=== PATIENT | female | born 1945 ===

== ENCOUNTER 2016-06-25 14:15 | Inpatient (IN) | payer MEDICARE, OTHER ==
[2016-06-25] MEDS ORDERED: Sodium Chloride 3% for Inhalation 4 ML VIAL.NEB IH PRN ×2 (14:58→17:39)
[2016-06-25] MEDS ORDERED: Albuterol-Ipratrop 3 mg / 0.5 (3 ml) UD INH STA (15:00)
--- NOTE | 2016-06-25 15:11 | ED PDOC ---
HPI: CCC, URI, Sore Throat Time Seen by Provider: 06/25/16 14:36 Chief Complaint (Nursing): Chest Pain Chief Complaint (Provider): Chest Pain History Per: Patient History/Exam Limitations: no limitations Onset/Duration Of Symptoms: Days Current Symptoms Are (Timing): Still Present Location Of Pain: Throat, Diffuse Myalgias Sick Contacts (Context): None Associated Symptoms: Fever, Sore Throat, Cough, Sputum Ear Symptoms: Bilateral: None Severity: Mild Additional Complaint(s): Patient is a 70 year old female who presents to ED for cough and congestion for 2 months and chest pain that developed 3 days ago. Patient states chest pain only present with cough, associated with intermittent fevers, whole body pain, sore throat and dizziness. Denies syncope, abdominal pain, nausea, vomiting, or back pain. Patient does note mild diarrhea. Past Medical History Reviewed: Historical Data, Nursing Documentation, Vital Signs Vital Signs: Last Vital Signs Temp 99.6 F 06/25/16 17:56 Pulse 96 H 06/25/16 17:56 Resp 18 06/25/16 17:56 BP 114/48 L 06/25/16 17:56 Pulse Ox 98 06/25/16 17:05 - Medical History PMH: CAD, Diabetes, Gastritis, HTN - Surgical History Surgical History: CABG - Family History Family History: States: No Known Family Hx - Living Arrangements Living Arrangements: With Family - Home Medications Home Medications: Ambulatory Orders Medication Instructions Recorded Albuterol 0.042% [Albuterol 0.042% 3 ml IH Q6H PRN 06/25/16 Inhal Nevin (1.25mg/3ml) UD] Albuterol Sulfate [Proair Hfa] 2 puff IH Q4H PRN 06/25/16 Enalapril Maleate [Vasotec] 20 mg PO DAILY 06/25/16 Ferrous Sulfate [Feosol] 325 mg PO TID 06/25/16 MetFORMIN [glucoPHAGE] 1,000 mg PO BID 06/25/16 Metoprolol Tartrate [Lopressor] 50 mg PO DAILY 06/25/16 Omeprazole/Sodium Bicarbonate [Ra 1 cap PO DAILY 06/25/16 Omeprazole-Bicarb 20-1,100] SITagliptin [Januvia] 50 mg PO DAILY 06/25/16 Warfarin [Coumadin] 2.5 mg PO QPM 06/25/16 amLODIPine [Norvasc] 10 mg PO DAILY 06/25/16 glyBURIDE [Micronase] 5 mg PO BID 06/25/16 - Allergies Allergies/Adverse Reactions: Allergies Allergy/AdvReac Type Severity Reaction Status Date / Time Penicillins AdvReac Intermediate RASH Verified 06/25/16 17:21 Review of Systems ROS Statement: Except As Marked, All Systems Reviewed And Found Negative Constitutional: Positive for: Fever, Chills ENT: Positive for: Throat Pain. Negative for: Ear Pain, Nose Congestion Cardiovascular: Positive for: Chest Pain. Negative for: Palpitations, Light Headedness Respiratory: Positive for: Cough, Sputum. Negative for: Shortness of Breath Gastrointestinal: Negative for: Nausea, Vomiting, Abdominal Pain Musculoskeletal: Negative for: Neck Pain Skin: Negative for: Rash Neurological: Negative for: Weakness Physical Exam - Reviewed Nursing Documentation Reviewed: Yes Vital Signs Reviewed: Yes - Physical Exam Appears: Positive for: Non-toxic, No Acute Distress Skin: Positive for: Normal Color, Warm. Negative for: Rash Eye Exam: Positive for: Normal appearance, EOMI, PERRL ENT: Positive for: Normal ENT Inspection. Negative for: Pharyngeal Erythema, Tonsillar Exudate, Tonsillar Swelling Neck: Positive for: Normal, Painless ROM, Supple Cardiovascular/Chest: Positive for: Regular Rate, Rhythm, Chest Non Tender. Negative for: Murmur Respiratory: Positive for: Normal Breath Sounds. Negative for: Respiratory Distress Back: Positive for: Normal Inspection Extremity: Positive for: Normal ROM. Negative for: Pedal Edema, Calf Tenderness Neurologic/Psych: Positive for: Alert, Oriented - Laboratory Results Result Diagrams: 06/25/16 15:55 06/25/16 15:55 - ECG O2 Sat by Pulse Oximetry: 98 (RA) Pulse Ox Interpretation: Normal - Critical Care Total Time (In Min): 35 Medical Decision Making Medical Decision Making: Time: 1455 Initial impression: Pneumonia, sepsis, influenza, bronchitis Initial plan: -- VBG -- EKG -- BMP -- CMP -- Troponin -- Urine dip -- CBC -- CXR -- Duoneb, NSF, Tylenol -- Blood culture -- Sputum culture -- Flu swab Time: 1645 Code sepsis called, patient administered NSF bolus and antibiotics via sepsis protocol. Family resident contacted for admission to ICU, paged dance teacher pending call back Time: 1700 Case discussed with intensivisit, agrees with plan and treatment CXR: (+) right middle and lower lobe pneumonia [address] Lau for ID consult. Scribe Attestation: Documented by Kimberly Read acting as a scribe for Karri Suero MD. Scribe Attestation: All medical record entries made by the Scribe were at my direction and personally dictated by me. I have reviewed the chart and agree that the record accurately reflects my personal performance of the history, physical exam, medical decision making, and the department course for this patient. I have also personally directed, reviewed, and agree with the discharge instructions and disposition. Disposition - Clinical Impression Clinical Impression: Pneumonia, Severe sepsis, Hyperglycemia due to type 2 diabetes mellitus, Septic shock - Patient ED Disposition Is Patient to be Admitted: Yes Discussed With : Joy Teague Doctor Will See Patient In The: ED Counseled Patient/Family Regarding: Studies Performed, Diagnosis - Disposition Disposition Time: 16:00 Condition: FAIR - Pt Status Changed To: Hospital Disposition Of: Inpatient - Admit Certification Admit to Inpatient:: After my assessment, the patient will require hospitalization for at least two midnights. This is because of the severity of symptoms shown, intensity of services needed, and/or the medical risk in this patient being treated as an outpatient. - POA Present On Arrival: Poor Glycemic Control Core Measure Indicators: Code Sepsis
[2016-06-25] MEDS ORDERED: Albuterol-Ipratrop 3 mg / 0.5 (3 ml) UD ONE (15:19)
[2016-06-25 16:11] LABS: VENOUS BLOOD GAS BASE EXCESS -1.7 mmol/L (0.0-2.0); VENOUS BLOOD GAS PCO2 34 mmHg (40-60); VENOUS BLOOD PH 7.42 (7.32-7.43)
[2016-06-25] MEDS ORDERED: Piperacillin/Tazobact 4.5 GM in Sodium Chloride 0.9% 100 ML IVPB STA (16:18)
[2016-06-25] MEDS ORDERED: Ciprofloxacin 400mg/200ml D5W 200 ML IVPB STA (16:19)
[2016-06-25] MEDS ORDERED: Vancomycin 1 g Inj ONE (16:19)
[2016-06-25 16:23] LABS: BASO # 0.2 K/uL (0.0-0.2); BASO % 0.7 % (0.0-2.0); HEMATOCRIT 39.3 % (34.0-47.0); LYMPH % 4.4 % (20.0-40.0); MEAN CELL VOLUME 87.8 fl (81.0-99.0); MEAN CORPUSCULAR HGB CONC 33.1 g/dL (33.0-37.0); MEAN PLATELET VOLUME 9.8 fl (7.2-11.7); MONO # 1.3 K/uL (0.0-0.8); MONO % 5.6 % (0.0-10.0); NEUT # 21.2 K/uL (1.8-7.0); NEUT % 89.3 % (50.0-75.0); PLATELET COUNT 214 K/uL (130-400); RED CELL DISTRIBUTION WIDTH 13.9 % (11.5-14.5); WHITE BLOOD COUNT 23.7 K/uL (4.8-10.8)
[2016-06-25 16:38] LABS: ALB/GLOB RATIO 1.1 (1.0-2.1); ALKALINE PHOSPHATASE 87 U/L (38-126); ALT/SGPT 22 U/L (9-52); AST/SGOT 29 U/L (14-36); BILIRUBIN,TOTAL 0.8 mg/dl (0.2-1.3); BLOOD UREA NITROGEN 17 mg/dl (7-17); CALCIUM 9.6 mg/dL (8.4-10.2); CARBON DIOXIDE 17 mmol/L (22-30); CHLORIDE 98 mmol/L (98-107); GFR AFRICAN-AMERICAN > 60; GLUCOSE,RANDOM 322 mg/dL (65-105); POTASSIUM 4.9 MMOL/L (3.6-5.0); SODIUM 133 mmol/l (132-148); TOTAL PROTEIN 7.5 G/DL (6.3-8.2)
[2016-06-25 16:47] LABS: PARTIAL THROMBOPLASTIN TIME 48.3 SECONDS (23.3-32.5)
[2016-06-25] MEDS ORDERED: Insulin Regular 100 units/ml IV STA (17:11)
--- NOTE | 2016-06-25 17:21 | CP.PCM.HP ---
History of Present Illness - History of Present Illness History of Present Illness: 70 y/o female with a PMHx remarkable for HTN, NIDDM2, CAD (s/o CABG 6 years ago) , and Asthma presents complaining of 1 months history of cough and congestion. Pt reports having a dry cough and rhinorrea for about one month, she went to [place] to visit her son two weeks ago and the symptoms seemed to resolve. Upon on her return to [place], the cough and congestion got worse. She went to see her cardiogist who prescribed her Clarithromycin 2 weeks ago for a 7 day course. 3 days ago the cough started to become productive and was associated with chest pain, fatigues, and chills. Pt has no other complaints. Denies headaches, changes in vision, N/V/D/C, urinary symptoms, numbness/tingling. ROS: 12 points reviewed and found to be negative PMD: Keshav Almanzar (last visit 3 years ago) Clinical Academic Allergist: Arsenio PMHx: HTN, NIDDM2, CAD (s/p CABG 6 years ago), Asthma Meds: Januvia 50mg QD, Metformin 1000 BID, Glyburide 5mg QD, Metoprolol 50mg QD , Amlodipine 10mg QD, Enalapril 20mg QD, Omeprazole 20mg QD. Warfarin 3mg QD. ALL: Penicillin (rash) PsurgHx: Hysterectomy 20 years ago, Cholecystectomy 20 years ago SHx: negative for tobacco, ETOH, and illicit drug use ED Course: Vitals on presentation: 103.4 F, BP: 153/67, HR: 106, RR: 16, O2: 98% on RA Labs Ordered: CBC: 23.7>13.0/39.3<214, Bands: 5 CMP: BUN 23 Lactate: 5.4 BNP: 1200 Troponin I: negative Influenza A&B: negative PT/PTT: 35.3/48.3 INR: 3.38 Urine Cx, Blood Cx, Sputum Cx Imaging Ordered: CXR: left infiltrate EKG: sinus tachycardia Code Sepsis Called Meds given: IV Zosyn IV Cipro IV Vanc Admitted to ICU Present on Admission - Present on Admission Any Indicators Present on Admission: No Review of Systems - Review of Systems All systems: reviewed and no additional remarkable complaints except Past Patient History - Infectious Disease Hx of Infectious Diseases: None - Tetanus Immunizations Tetanus Immunization: Unknown - Past Medical History & Family History Past Medical History?: Yes - Past Social History Smoking Status: Never Smoked Alcohol: None Drugs: Denies Home Situation {Lives}: With Family Domestic Violence: Negative - CARDIAC Hx Hypertension: Yes - GASTROINTESTINAL Hx Gastritis: Yes - SURGICAL HISTORY Hx Coronary Artery Bypass Graft: Yes Meds Allergies/Adverse Reactions: Allergies Allergy/AdvReac Type Severity Reaction Status Date / Time Penicillins AdvReac Intermediate RASH Verified 06/25/16 17:21 Physical Exam - Constitutional Appears: Non-toxic, No Acute Distress - Head Exam Head Exam: ATRAUMATIC, NORMOCEPHALIC - Eye Exam Eye Exam: EOMI. absent: Conjunctival injection, Scleral icterus Pupil Exam: PERRL - ENT Exam ENT Exam: Mucous Membranes Moist - Neck Exam Neck exam: Positive for: Full Rom, Normal Inspection. Negative for: Lymphadenopathy - Respiratory Exam Respiratory Exam: Rales, Wheezes. absent: Respiratory Distress Additional comments: bibasilar rales expiratory wheezing posteriorly and bilaterally mild dullness to percussion on posterior left lower lung field - Cardiovascular Exam Cardiovascular Exam: Tachycardia, REGULAR RHYTHM, RRR, +S1, +S2. absent: Gallop , JVD, Rubs, Systolic Murmur - GI/Abdominal Exam GI & Abdominal Exam: Normal Bowel Sounds, Soft. absent: Distended, Firm, Guarding, Rebound, Tenderness - Extremities Exam Extremities exam: Positive for: normal inspection, pedal pulses present. Negative for: calf tenderness, pedal edema, tenderness - Back Exam Back exam: NORMAL INSPECTION - Neurological Exam Neurological exam: Alert, CN II-XII Intact, Normal Gait, Oriented x3 - Psychiatric Exam Psychiatric exam: Normal Affect, Normal Mood - Skin Skin Exam: Dry, Intact, Normal Color, Warm Results - Vital Signs Recent Vital Signs: Last Vital Signs Temp 99.6 F 06/25/16 16:28 Pulse 96 H 06/25/16 16:28 Resp 18 06/25/16 16:28 BP 114/48 L 06/25/16 16:28 Pulse Ox 98 06/25/16 17:05 - Labs Result Diagrams: 06/25/16 15:55 06/25/16 15:55 Assessment & Plan - Assessment and Plan (Free Text) Assessment: 70 y/o female with a PMHx remarkable for HTN, NIDDM2, CAD (s/p CABG 6 years ago) , and Asthma admitted for Sepsis secondary to Pneumonia Plan: 1) Sepsis Secondary to Pneumonia: -admitted to ICU -Case discussed with ICU attending Dr. Zamora -Urine analysis and culture: pending -blood cultures: pending -sputum cultures: pending -IV Levofloxacin 750 ml QD -IV Ciprofloxcin 200 ml Q12 -IV Vancomycin 1gm Q12 -repeat Lactate in 4 hours: pending -ABG Shock Panel: pending -CMP next day: pending 2) Hypertension (controlled) c/w home medications 3) NIDDM2 -stopped Metormin and Glyburide -Januvia 50mg QD 4) Asthma: -Albuterol 2.5 inhaled Q PRN 5) DVT Prophylaxis -Warfarin 2.5 mg QD
[2016-06-25] MEDS ORDERED: Ciprofloxacin 400mg/200ml D5W 200 ML IVPB ONE (17:26)
[2016-06-25 17:32] LABS: NEUTROPHIL 84 % (42-75); TOTAL CELLS COUNTED 100
[2016-06-25] MEDS ORDERED: Albuterol 0.083% Inhal Sol (2.5 mg/3 mL) UD INH PRN (17:39)
[2016-06-25] MEDS ORDERED: Sodium Chloride 0.9% 1,000 ML IV SCH (17:45)
[2016-06-25] MEDS ORDERED: Glucagon Recombinant 1 mg Inj IM PRN (18:06)
[2016-06-25] MEDS ORDERED: Dextrose 50% SYRINGE Inj (50 ml) IV PRN (18:06)
--- NOTE | 2016-06-25 19:07 | CON ---
DATE: 06/25/2016 The patient in room ICU 421. REASON FOR CONSULTATION: A 70-year-old female with sepsis, suspected pneumonia for further evaluatio n and followup. HISTORY OF PRESENT ILLNESS: The patient is a 70-year-old female with history of diabetes me llitus type 2, hypertension, gastritis, coronary artery disease status post coronary artery bypass gr aft surgery and status post cerebrovascular accident without residual weakness, presented to [facility] Room complaining of fever associated with body ache, sore throat and dizziness. In the ER, the pat ient's vital signs showed a temperature 99.6, heart rate 96, respiratory rate 18, blood pressure 114/ 48, pulse oximetry 98%. Examination was significant for normal color, warm. Negative for rash. Pos itive for ENT for pharyngeal erythema. Clear lungs. Unremarkable examination of the heart. Neuro e xamination was nonfocal. The patient's lab data showed leukocytosis, blood sugar 322 with a high ani on gap, metabolic acidosis. Chest x-ray showed suspected infiltrate left lower lobe admitted to ICU. REVIEW OF SYSTEMS: As noted, fever, chills, body ache, sore throat, nonproductive cough. No abdomin al pain or diarrhea. Does dysuria. ALLERGIES: PENICILLIN. SOCIAL HISTORY: Nonsmoker, no ETOH use, and no recreational drug use. PHYSICAL EXAMINATION: GENERAL: Elderly female, oriented to name, place and time. VITAL SIGNS: Temperature 103.4, heart rate 96, blood pressure 114/48, oxygen saturation 96% on room air. HEAD, EYES, EARS, NOSE AND THROAT: Pupils reactive. Conjunctivae pink. Sclerae white. Throat obed ested. No enlargement of the tonsils. No lymphadenopathy. Trachea is central. NECK: Supple. CHEST: Bilateral breath sounds. Clear to auscultation. HEART: Rhythm regular. S1, S2 normal intensity. No S3, S4 or gallop. No audible murmur. ABDOMEN: Bowel sounds present, soft. Liver and spleen not palpable. Bladder not distended. EXTREMITIES: No clubbing, cyanosis, or edema. Peripheral pulses intact. No palpable cord. SKIN: Without rash. LABORATORY DATA: WBC 23.7, hemoglobin 13, hematocrit 39.3, platelet count 214, neutrophils 89.3, lym phocytes 4.4, monocytes 5.6. PT 35.2, INR 3.38, PTT 48.3. Lactate 5.4. SMA-7: Sodium 133, potassi um 4.9, chloride 98, CO2 of 17, blood urea nitrogen 17, creatinine 0.9, glucose 322, calcium 9.6, tot al bilirubin 0.8, AST 29, ALT 22, alkaline phosphatase 87, troponin negative, proBNP 1200, total prot ein 7.5, albumin 3.9. Serology influenza A and B negative. ASSESSMENT: 1. Sepsis, source respiratory versus urinary tract, status post hydration with 2.5 liters of fluid. Continue sodium chloride at 100 mL per hour. 2. Suspected pneumonia, failed outpatient treatment with azithromycin, PENICILLIN ALLERGY, currentl y vancomycin 1 gram IV q. 12, levofloxacin 750 mg IV daily. 3. Diabetes mellitus type 2 on 1800 calorie diabetic diet. Continue metformin. Continue Januvia 50 mg daily, Accu-Chek with regular insulin coverage. History of hypertension, controlled, status post cerebrovascular accident with residual weakness. Status post coronary artery bypass graft surgery, stable. PLAN: Septic workup. Repeat lactate level. Hold Coumadin until coagulopathy is corrected. Hold GI prophylaxis. The patient is not intubated. Continue albuterol solution 2.5 mg every 6 hours and ev shaunna 4 hours as needed and Pulmicort 0.5 mg via nebulizer q. 12. Cesar Zamora MD cc: 170 TT: 06/25/2016 19:06:24 Confirmation # [id number] Dictation # [id number] tobias
--- NOTE | 2016-06-25 20:03 | CP.PCM.PN ---
Subjective - Date & Time of Evaluation Date of Evaluation: 06/25/16 Time of Evaluation: 20:00 - Subjective Subjective: ID NOTE AWAIT CULTURES FULL CONSULT TO FOLLOW AGREE C PRESENT ANTIBIOTIC RX Objective - Vital Signs/Intake and Output Vital Signs (last 24 hours): Temp Pulse Resp BP Pulse Ox 98.7 F 97 H 21 140/66 92 L 06/25/16 18:29 06/25/16 18:49 06/25/16 18:49 06/25/16 18:17 06/25/16 18:29 Intake and Output: 06/25/16 06/26/16 18:59 06:59 Intake Total 400 Output Total 500 Balance -100 - Medications Medications: Current Medications Acetaminophen (Tylenol 325mg Tab) 650 mg PO Q6 PRN PRN Reason: Fever >100.4 F Albuterol Sulfate (Albuterol 0.083% Inhal Nevin (2.5 Mg/3 Ml) Ud) 2.5 mg INH RQ4 PRN PRN Reason: Shortness of Breath Albuterol/Ipratropium (Duoneb 3 Mg/0.5 Mg (3 Ml) Ud) 3 ml INH RQID [facility] Amlodipine Besylate (Norvasc) 10 mg PO DAILY [facility] Budesonide (Pulmicort Respules) 0.5 mg IH RBID [facility] Dextrose (Glutose 15) 0 gm PO ONCE PRN; Protocol PRN Reason: Hypoglycemia Protocol Dextrose (Dextrose 50% Inj) 0 ml IV STAT PRN; Protocol PRN Reason: Hyglycemia Protocol Enalapril Maleate (Vasotec) 20 mg PO DAILY [facility] Fluticasone Propionate (Flonase) 2 spr SAE DAILY [facility] Glucagon (Glucagen Diagnostic Kit) 0 mg IM STAT PRN; Protocol PRN Reason: Hypoglycemia Protocol Sodium Chloride (Sodium Chloride 0.9%) 1,000 mls @ 100 mls/hr IV .Q10H [facility] Levofloxacin/Dextrose (Levaquin 750mg) 150 mls @ 100 mls/hr IVPB DAILY [facility] Stop: 06/29/16 17:51 Vancomycin HCl 1 gm/ Sodium (Chloride) 250 mls @ 166.667 mls/hr IVPB Q12 [facility] Insulin Human Regular (Humulin R) 0 units SC ACCU-CHECK [facility] PRN Reason: Protocol Metoprolol Tartrate (Lopressor) 50 mg PO DAILY [facility] Oseltamivir Phosphate (Tamiflu Cap) 75 mg PO BID [facility] Sitagliptin Phosphate (Januvia) 50 mg PO DAILY [facility] Warfarin Sodium (Coumadin) 2.5 mg PO DAILY [facility] PRN Reason: Protocol - Labs Labs: PT 35.2 SECONDS (9.6-11.2) H* 06/25/16 15:55 INR 3.38 (0.92-1.08) H 06/25/16 15:55 APTT 48.3 SECONDS (23.3-32.5) H 06/25/16 15:55
[2016-06-25] MEDS: Albuterol-Ipratrop 3 mg / 0.5 (3 ml) UD INH SCH (20:44)
[2016-06-25] MEDS: Insulin Regular 100 units/ml SC SCH (22:12)
[2016-06-25] MEDS: Budesonide 0.5 mg/2 ml Inhal Susp UD IH SCH (22:44)
[2016-06-26 05:15] LABS: HEMATOCRIT 33.1 % (34.0-47.0); MEAN CELL VOLUME 88.3 fl (81.0-99.0); MEAN CORPUSCULAR HEMOGLOBIN 29.4 pg (27.0-31.0); MEAN CORPUSCULAR HGB CONC 33.3 g/dL (33.0-37.0); RED CELL DISTRIBUTION WIDTH 13.9 % (11.5-14.5); WHITE BLOOD COUNT 17.3 K/uL (4.8-10.8)
[2016-06-26 05:55] LABS: ALKALINE PHOSPHATASE 68 U/L (38-126); ALT/SGPT 14 U/L (9-52); AST/SGOT 19 U/L (14-36); BILIRUBIN,TOTAL 0.8 mg/dl (0.2-1.3); BLOOD UREA NITROGEN 15 mg/dl (7-17); CALCIUM 8.3 mg/dL (8.4-10.2); CARBON DIOXIDE 21 mmol/L (22-30); CHLORIDE 106 mmol/L (98-107); GFR AFRICAN-AMERICAN > 60; GLUCOSE,RANDOM 163 mg/dL (65-105); POTASSIUM 4.3 MMOL/L (3.6-5.0); SODIUM 141 mmol/l (132-148); TOTAL PROTEIN 5.7 G/DL (6.3-8.2)
[2016-06-26] MEDS: Insulin Regular 100 units/ml SC SCH ×3 (06:16→17:17)
[2016-06-26] MEDS ORDERED: Ciprofloxacin 400mg/200ml D5W 200 ML IVPB SCH (07:00)
[2016-06-26] MEDS: Albuterol-Ipratrop 3 mg / 0.5 (3 ml) UD INH SCH ×4 (07:20→20:30)
[2016-06-26] MEDS: Budesonide 0.5 mg/2 ml Inhal Susp UD IH SCH ×2 (07:20→20:30)
--- NOTE | 2016-06-26 08:44 | CP.PCM.PN ---
Subjective - Date & Time of Evaluation Date of Evaluation: 06/26/16 Time of Evaluation: 08:30 - Subjective Subjective: pt seen and examined at bedside this morning. NAEO. Pt sitting upright in bed, comfortably, NAD. OOB/ambulating to the bathroom with assistance. She reports several episodes of mild hemoptysis last night. She was unable to quantify how much but reports she coughed up nonfrothhy blood to a napkin and threw it away. She also complains of left sided pleuritic chest pain upon deep inspiration. Other than that she reports feeling better overall. She has no other complaints and denies fever/chills, headaches, changes in vision, dizziness, cardinal cardiac chest pain symptoms, N/V/D/C, urinary symptoms, leg pain/edema. Objective - Vital Signs/Intake and Output Vital Signs (last 24 hours): Temp Pulse Resp BP Pulse Ox 98.4 F 103 H 24 128/67 93 L 06/26/16 08:00 06/26/16 08:00 06/26/16 08:00 06/26/16 08:00 06/26/16 08:00 - Medications Medications: Current Medications Acetaminophen (Tylenol 325mg Tab) 650 mg PO Q6 PRN PRN Reason: Fever >100.4 F Albuterol Sulfate (Albuterol 0.083% Inhal Nevin (2.5 Mg/3 Ml) Ud) 2.5 mg INH RQ4 PRN PRN Reason: Shortness of Breath Albuterol/Ipratropium (Duoneb 3 Mg/0.5 Mg (3 Ml) Ud) 3 ml INH RQID [facility] Last Admin: 06/26/16 07:20 Dose: 3 ml Amlodipine Besylate (Norvasc) 10 mg PO DAILY [facility] Budesonide (Pulmicort Respules) 0.5 mg IH RBID [facility] Last Admin: 06/26/16 07:20 Dose: 0.5 mg Dextrose (Glutose 15) 0 gm PO ONCE PRN; Protocol PRN Reason: Hypoglycemia Protocol Dextrose (Dextrose 50% Inj) 0 ml IV STAT PRN; Protocol PRN Reason: Hyglycemia Protocol Enalapril Maleate (Vasotec) 20 mg PO DAILY [facility] Fluticasone Propionate (Flonase) 2 spr SAE DAILY [facility] Last Admin: 06/25/16 22:06 Dose: 2 spr Glucagon (Glucagen Diagnostic Kit) 0 mg IM STAT PRN; Protocol PRN Reason: Hypoglycemia Protocol Sodium Chloride (Sodium Chloride 0.9%) 1,000 mls @ 100 mls/hr IV .Q10H [facility] Last Admin: 06/26/16 04:00 Dose: 100 mls/hr Levofloxacin/Dextrose (Levaquin 750mg) 150 mls @ 100 mls/hr IVPB DAILY [facility] Stop: 06/29/16 17:51 Vancomycin HCl 1 gm/ Sodium (Chloride) 250 mls @ 166.667 mls/hr IVPB Q12H [facility] Last Admin: 06/26/16 05:28 Dose: 166.667 mls/hr Insulin Human Regular (Humulin R) 0 units SC ACCU-CHECK [facility] PRN Reason: Protocol Last Admin: 06/26/16 06:16 Dose: Not Given Metoprolol Tartrate (Lopressor) 50 mg PO DAILY [facility] Oseltamivir Phosphate (Tamiflu Cap) 75 mg PO BID [facility] Last Admin: 06/25/16 22:07 Dose: 75 mg Sitagliptin Phosphate (Januvia) 50 mg PO DAILY [facility] Warfarin Sodium (Coumadin) 2.5 mg PO DAILY [facility] PRN Reason: Protocol - Labs Labs: 06/26/16 04:25 06/26/16 04:25 PT 30.9 SECONDS (9.6-11.2) H* 06/26/16 04:25 INR 2.97 (0.92-1.08) H 06/26/16 04:25 APTT 48.3 SECONDS (23.3-32.5) H 06/25/16 15:55 - Constitutional Appears: Non-toxic, No Acute Distress - Eye Exam Eye Exam: EOMI Pupil Exam: PERRL - ENT Exam ENT Exam: Mucous Membranes Moist - Respiratory Exam Respiratory Exam: Rhonchi, Wheezes, NORMAL BREATHING PATTERN. absent: Accessory Muscle Use, Chest Wall Tenderness - Cardiovascular Exam Cardiovascular Exam: REGULAR RHYTHM, RRR, +S1, +S2. absent: Tachycardia, Gallop , JVD, Rubs, Murmur - GI/Abdominal Exam GI & Abdominal Exam: Soft, Normal Bowel Sounds. absent: Distended, Firm, Guarding, Rigid, Tenderness, Rebound - Extremities Exam Extremities Exam: Full ROM, Normal Inspection. absent: Calf Tenderness, Pedal Edema, Tenderness - Neurological Exam Neurological Exam: Alert, Awake, CN II-XII Intact, Oriented x3 - Psychiatric Exam Psychiatric exam: Normal Affect, Normal Mood - Skin Skin Exam: Dry, Intact, Normal Color, Warm Assessment and Plan - Assessment and Plan (Free Text) Assessment: 70 y/o female with a PMHx remarkable for HTN, NIDDM2, CAD (s/p CABG 6 years ago) , and Asthma admitted for Sepsis secondary to Pneumonia Plan: 1) Sepsis Secondary to Pneumonia: -admitted to ICU -Case discussed with ICU attending Dr. Zamora -Urine analysis: pending -Urine culture: pending -blood cultures: pending -sputum cultures: pending -Legionella: pending -Mycoplasma: pending -IV Levofloxacin 750 ml QD -IV Ciprofloxcin 200 ml Q12 -IV Vancomycin 1gm Q12 -INR: 2.97 -CBC: 17.3>11.0/33.1<167 -Lactic acid: 3.7 -ABG Shock Panel: pending -CMP next day: WNL -CXR 06/26: left lower lobe infiltrate, likely acute pneumonia -ID on board: consult via Dr. Raymundo who agrees with current abx plan and wants to wait for culture results before giving official recommendations. 2) Hypertension (controlled) c/w home medications 3) NIDDM2 -stopped Metormin and Glyburide -stop Januvia 50mg QD -continue with Insulin 4) Asthma: -Albuterol 2.5 inhaled Q PRN 5) DVT Prophylaxis -Warfarin 2.5 mg QD
--- NOTE | 2016-06-26 08:56 | CP.CCUPN ---
<Jesus Sanchez - Last Filed: 06/26/16 11:51> CCU Subjective - Physician Review Events Since Last Encounter (Free Text): 06/26/16 11:43 Pt. seen at bedside awake resting comfortably in NAD and with no complaints. Overnight was uneventful. On ROS, pt. states had 1 episode of "blood cough" described as "bright blood in her mucus" Pt. has not had a repeat episode. Pt. denies any melena, hematemesis, chest pain, shortness of breath, abdominal pain , limb pain, dizziness, or palpitations. CCU Objective - Vital Signs / Intake & Output Vital Signs (Last 4 hours): Vital Signs Temp Pulse Resp BP Pulse Ox 06/26/16 08:35 96 H 128/63 06/26/16 08:34 96 H 128/67 06/26/16 08:00 98.4 F 103 H 24 128/67 93 L 06/26/16 07:54 96 H 110/52 L 06/26/16 06:00 88 28 H 100/54 L 96 Intake and Output (Last 8hrs): Intake & Output 06/25/16 06/26/16 06/26/16 22:59 06:59 14:59 Intake Total 400 Output Total 500 Balance -100 Intake: IV 400 Output: Urine 500 Urine, Voided 500 - Physical Exam Head: Positive for: Atraumatic, Normocephalic Conjunctiva: Negative for: Icteric Mouth: Positive for: Moist Mucous Membranes Neck: Positive for: Normal Range of Motion (supple) Respiratory/Chest: Positive for: Wheezes (scatterred ), Rhonchi (diffuse) Cardiovascular: Positive for: Regular Rate and Rhythm, Normal S1, S2 Abdomen: Negative for: Tenderness, Guarding Skin: Positive for: Other (anterior chest wall surgical scar) Psychiatric: Positive for: Alert, Oriented x 3 - Medications Active Medications: Active Medications Generic Name Dose Route Start Last Admin Trade Name Freq PRN Reason Stop Dose Admin Acetaminophen 650 mg 06/25/16 18:24 Tylenol 325mg Tab PO Q6 PRN Fever >100.4 F Albuterol Sulfate 2.5 mg 06/25/16 17:39 Albuterol 0.083% Inhal Nevin (2.5 Mg/3 Ml) Ud INH RQ4 PRN Shortness of Breath Albuterol/Ipratropium 3 ml 06/25/16 20:00 06/26/16 07:20 Duoneb 3 Mg/0.5 Mg (3 Ml) Ud INH 3 ml RQID DARSHAN Administration Amlodipine Besylate 10 mg 06/26/16 09:00 06/26/16 08:35 Norvasc PO 10 mg DAILY DARSHAN Administration Budesonide 0.5 mg 06/25/16 20:00 06/26/16 07:20 Pulmicort Respules IH 0.5 mg RBID DARSHAN Administration Dextrose 0 gm 06/25/16 18:06 Glutose 15 PO ONCE PRN Hypoglycemia Protocol Protocol Dextrose 0 ml 06/25/16 18:06 Dextrose 50% Inj IV STAT PRN Hyglycemia Protocol Protocol Enalapril Maleate 20 mg 06/26/16 09:00 06/26/16 08:34 Vasotec PO 20 mg DAILY DARSHAN Administration Fluticasone Propionate 2 spr 06/25/16 19:00 06/26/16 08:32 Flonase SAE 2 spr DAILY DARSHAN Administration Glucagon 0 mg 06/25/16 18:06 Glucagen Diagnostic Kit IM STAT PRN Hypoglycemia Protocol Protocol Sodium Chloride 1,000 mls @ 100 mls/hr 06/25/16 17:45 06/26/16 04:00 Sodium Chloride 0.9% IV 100 mls/hr .Q10H DARSHAN Administration Levofloxacin/Dextrose 150 mls @ 100 mls/hr 06/26/16 09:00 06/26/16 08:33 Levaquin 750mg IVPB 06/29/16 17:51 100 mls/hr DAILY DARSHAN Administration Vancomycin HCl 1 gm/ Sodium 250 mls @ 166.667 mls/hr 06/26/16 06:00 06/26/16 05 :28 Chloride IVPB 166.667 mls/hr Q12H DARSHAN Administration Insulin Human Regular 0 units 06/25/16 23:00 06/26/16 06:16 Humulin R SC Not Given ACCU-CHECK [facility] Protocol Metoprolol Tartrate 50 mg 06/26/16 09:00 06/26/16 08:34 Lopressor PO 50 mg DAILY DARSHAN Administration Oseltamivir Phosphate 75 mg 06/25/16 18:15 06/26/16 08:35 Tamiflu Cap PO 75 mg BID DARSHAN Administration Sitagliptin Phosphate 50 mg 06/26/16 09:00 06/26/16 08:33 Januvia PO 50 mg DAILY DARSHAN Administration Warfarin Sodium 2.5 mg 06/25/16 20:00 Coumadin PO DAILY DARSHAN Protocol - Patient Studies Lab Studies: Lab Studies 06/26/16 06/26/16 06/25/16 Range/Units 05:37 04:25 22:09 WBC 17.3 H (4.8-10.8) K/uL RBC 3.75 L (3.80-5.20) Mil/uL Hgb 11.0 L D (12.0-16.0) g/dL Hct 33.1 L (34.0-47.0) % MCV 88.3 (81.0-99.0) fl MCH 29.4 (27.0-31.0) pg MCHC 33.3 (33.0-37.0) g/dL RDW 13.9 (11.5-14.5) % Plt Count 167 (130-400) K/uL PT 30.9 H* (9.6-11.2) SECONDS INR 2.97 H (0.92-1.08) Sodium 141 (132-148) mmol/l Potassium 4.3 (3.6-5.0) MMOL/L Chloride 106 (98-107) mmol/L Carbon Dioxide 21 L (22-30) mmol/L Anion Gap 18 (10-20) BUN 15 (7-17) mg/dl Creatinine 0.9 (0.7-1.2) mg/dL Est GFR ( Amer) > 60 Est GFR (Non-Af Amer) > 60 POC Glucose (mg/dL) 188 H 169 H (65-110) mg/dL Random Glucose 163 H (65-105) mg/dL Lactic Acid (0.7-2.1) MMOL/L Calcium 8.3 L (8.4-10.2) mg/dL Total Bilirubin 0.8 (0.2-1.3) mg/dl AST 19 (14-36) U/L ALT 14 (9-52) U/L Alkaline Phosphatase 68 (38-126) U/L Total Protein 5.7 L (6.3-8.2) G/DL Albumin 2.8 L D (3.5-5.0) g/dL Globulin 2.9 (2.2-3.9) gm/dL Albumin/Globulin Ratio 1.0 (1.0-2.1) 06/25/16 Range/Units 20:45 WBC (4.8-10.8) K/uL RBC (3.80-5.20) Mil/uL Hgb (12.0-16.0) g/dL Hct (34.0-47.0) % MCV (81.0-99.0) fl MCH (27.0-31.0) pg MCHC (33.0-37.0) g/dL RDW (11.5-14.5) % Plt Count (130-400) K/uL PT (9.6-11.2) SECONDS INR (0.92-1.08) Sodium (132-148) mmol/l Potassium (3.6-5.0) MMOL/L Chloride (98-107) mmol/L Carbon Dioxide (22-30) mmol/L Anion Gap (10-20) BUN (7-17) mg/dl Creatinine (0.7-1.2) mg/dL Est GFR ( Amer) Est GFR (Non-Af Amer) POC Glucose (mg/dL) (65-110) mg/dL Random Glucose (65-105) mg/dL Lactic Acid 3.6 H (0.7-2.1) MMOL/L Calcium (8.4-10.2) mg/dL Total Bilirubin (0.2-1.3) mg/dl AST (14-36) U/L ALT (9-52) U/L Alkaline Phosphatase (38-126) U/L Total Protein (6.3-8.2) G/DL Albumin (3.5-5.0) g/dL Globulin (2.2-3.9) gm/dL Albumin/Globulin Ratio (1.0-2.1) Laboratory Results - last 24 hr 06/25/16 06/25/16 06/26/16 20:45 22:09 04:25 WBC 17.3 H RBC 3.75 L Hgb 11.0 L D Hct 33.1 L MCV 88.3 MCH 29.4 MCHC 33.3 RDW 13.9 Plt Count 167 PT 30.9 H* INR 2.97 H Sodium 141 Potassium 4.3 Chloride 106 Carbon Dioxide 21 L Anion Gap 18 BUN 15 Creatinine 0.9 Est GFR ( Amer) > 60 Est GFR (Non-Af Amer) > 60 POC Glucose (mg/dL) 169 H Random Glucose 163 H Lactic Acid 3.6 H Calcium 8.3 L Total Bilirubin 0.8 AST 19 ALT 14 Alkaline Phosphatase 68 Total Protein 5.7 L Albumin 2.8 L D Globulin 2.9 Albumin/Globulin Ratio 1.0 06/26/16 05:37 WBC RBC Hgb Hct MCV MCH MCHC RDW Plt Count PT INR Sodium Potassium Chloride Carbon Dioxide Anion Gap BUN Creatinine Est GFR ( Amer) Est GFR (Non-Af Amer) POC Glucose (mg/dL) 188 H Random Glucose Lactic Acid Calcium Total Bilirubin AST ALT Alkaline Phosphatase Total Protein Albumin Globulin Albumin/Globulin Ratio Fingerstick Blood Sugar Results: 188 Review of Systems - Review of Systems Review of Systems: See HPI Critical Care Progress Note - Nutrition Nutrition: Nutrition Category Date Time Status NPO Diet [DIET] Diets 06/25/16 Dinner Active Assessment/Plan - Assessment and Plan (Free Text) Assessment: 70 y/o female admitted for Sepsis secondary to Pneumonia and on Coumadin now complaining of Hemoptysis 1- Sepsis secondary to Pneumonia- Improving WBC 17.3 today, Lactic acid 3.6 a- c/w Levofloxacin b- c/w Ciprofloxacin c- c/w Vancomycin d- BCx- pending e- UCx- pending f- Sputum Cx- pending g- I.D. Dr. Smith on board- Input appreciated 2- Hemoptysis-on Coumadin 2.5mg INR today 2.97 Vitals signs at time of evaluation T-98.4 BP-128/67 HR-103 RR 24 93% O2 via 2LNC a-Repeat Coags in the a.m. - Hold Coumadin b-Pt. given container to collect bloody sputum c-H/H 2- Sofia a- Duonebs Q4 DARSHAN b- c/w Pulmicort INH 3- HTN a- c/w home medications 4- Type II DM a- c/w with Januvia b- c/w LDSS 5- DVT prophylaxis a- Hold Coumadin 2.5mg b- SCD for now 6- Diet a- Start Consistent Carbohydrate diet <Cesar Zamora V - Last Filed: 06/26/16 12:11> CCU Subjective - Physician Review Events Since Last Encounter (Free Text): 06/26/16 12:10 patient seen, examined at bedside. discussed with resident. agree with plan of care as detailed in resident's note. Discontinued ciprofloxacin CCU Objective - Vital Signs / Intake & Output Vital Signs (Last 4 hours): Vital Signs Pulse Resp BP Pulse Ox 06/26/16 10:00 99 H 21 121/69 98 06/26/16 08:35 96 H 128/63 06/26/16 08:34 96 H 128/67 Intake and Output (Last 8hrs): Intake & Output 06/25/16 06/26/16 06/26/16 22:59 06:59 14:59 Intake Total 400 Output Total 500 Balance -100 Intake: IV 400 Output: Urine 500 Urine, Voided 500 - Medications Active Medications: Active Medications Generic Name Dose Route Start Last Admin Trade Name Freq PRN Reason Stop Dose Admin Acetaminophen 650 mg 06/25/16 18:24 Tylenol 325mg Tab PO Q6 PRN Fever >100.4 F Albuterol/Ipratropium 3 ml 06/25/16 20:00 06/26/16 11:02 Duoneb 3 Mg/0.5 Mg (3 Ml) Ud INH 3 ml RQID DARSHAN Administration Amlodipine Besylate 5 mg 06/26/16 10:25 Norvasc PO DAILY DARSHAN Budesonide 0.5 mg 06/25/16 20:00 06/26/16 07:20 Pulmicort Respules IH 0.5 mg RBID DARSHAN Administration Dextrose 0 gm 06/25/16 18:06 Glutose 15 PO ONCE PRN Hypoglycemia Protocol Protocol Dextrose 0 ml 06/25/16 18:06 Dextrose 50% Inj IV STAT PRN Hyglycemia Protocol Protocol Enalapril Maleate 20 mg 06/26/16 09:00 06/26/16 08:34 Vasotec PO 20 mg DAILY DARSHAN Administration Fluticasone Propionate 2 spr 06/25/16 19:00 06/26/16 08:32 Flonase SAE 2 spr DAILY DARSHAN Administration Glucagon 0 mg 06/25/16 18:06 Glucagen Diagnostic Kit IM STAT PRN Hypoglycemia Protocol Protocol Sodium Chloride 1,000 mls @ 100 mls/hr 06/25/16 17:45 06/26/16 04:00 Sodium Chloride 0.9% IV 100 mls/hr .Q10H DARSHAN Administration Levofloxacin/Dextrose 150 mls @ 100 mls/hr 06/26/16 09:00 06/26/16 08:33 Levaquin 750mg IVPB 06/29/16 17:51 100 mls/hr DAILY DARSHAN Administration Vancomycin HCl 1 gm/ Sodium 250 mls @ 166.667 mls/hr 06/26/16 06:00 06/26/16 05 :28 Chloride IVPB 166.667 mls/hr Q12H DARSHAN Administration Insulin Human Regular 0 units 06/25/16 23:00 06/26/16 11:03 Humulin R SC 2 units ACCU-CHECK DARSHAN Administration Protocol Metoprolol Tartrate 50 mg 06/26/16 09:00 06/26/16 08:34 Lopressor PO 50 mg DAILY DARSHAN Administration Oseltamivir Phosphate 75 mg 06/25/16 18:15 06/26/16 08:35 Tamiflu Cap PO 75 mg BID DARSHAN Administration Sitagliptin Phosphate 50 mg 06/26/16 09:00 06/26/16 08:33 Januvia PO 50 mg DAILY DARSHAN Administration Warfarin Sodium 2.5 mg 06/25/16 20:00 Coumadin PO DAILY DARSHAN Protocol - Patient Studies Lab Studies: Lab Studies 06/26/16 06/26/16 06/26/16 Range/Units 10:45 05:37 04:25 WBC 17.3 H (4.8-10.8) K/uL RBC 3.75 L (3.80-5.20) Mil/uL Hgb 11.0 L D (12.0-16.0) g/dL Hct 33.1 L (34.0-47.0) % MCV 88.3 (81.0-99.0) fl MCH 29.4 (27.0-31.0) pg MCHC 33.3 (33.0-37.0) g/dL RDW 13.9 (11.5-14.5) % Plt Count 167 (130-400) K/uL PT 30.9 H* (9.6-11.2) SECONDS INR 2.97 H (0.92-1.08) Sodium 141 (132-148) mmol/l Potassium 4.3 (3.6-5.0) MMOL/L Chloride 106 (98-107) mmol/L Carbon Dioxide 21 L (22-30) mmol/L Anion Gap 18 (10-20) BUN 15 (7-17) mg/dl Creatinine 0.9 (0.7-1.2) mg/dL Est GFR ( Amer) > 60 Est GFR (Non-Af Amer) > 60 POC Glucose (mg/dL) 187 H 188 H (65-110) mg/dL Random Glucose 163 H (65-105) mg/dL Lactic Acid (0.7-2.1) MMOL/L Calcium 8.3 L (8.4-10.2) mg/dL Total Bilirubin 0.8 (0.2-1.3) mg/dl AST 19 (14-36) U/L ALT 14 (9-52) U/L Alkaline Phosphatase 68 (38-126) U/L Total Protein 5.7 L (6.3-8.2) G/DL Albumin 2.8 L D (3.5-5.0) g/dL Globulin 2.9 (2.2-3.9) gm/dL Albumin/Globulin Ratio 1.0 (1.0-2.1) 06/25/16 06/25/16 Range/Units 22:09 20:45 WBC (4.8-10.8) K/uL RBC (3.80-5.20) Mil/uL Hgb (12.0-16.0) g/dL Hct (34.0-47.0) % MCV (81.0-99.0) fl MCH (27.0-31.0) pg MCHC (33.0-37.0) g/dL RDW (11.5-14.5) % Plt Count (130-400) K/uL PT (9.6-11.2) SECONDS INR (0.92-1.08) Sodium (132-148) mmol/l Potassium (3.6-5.0) MMOL/L Chloride (98-107) mmol/L Carbon Dioxide (22-30) mmol/L Anion Gap (10-20) BUN (7-17) mg/dl Creatinine (0.7-1.2) mg/dL Est GFR ( Amer) Est GFR (Non-Af Amer) POC Glucose (mg/dL) 169 H (65-110) mg/dL Random Glucose (65-105) mg/dL Lactic Acid 3.6 H (0.7-2.1) MMOL/L Calcium (8.4-10.2) mg/dL Total Bilirubin (0.2-1.3) mg/dl AST (14-36) U/L ALT (9-52) U/L Alkaline Phosphatase (38-126) U/L Total Protein (6.3-8.2) G/DL Albumin (3.5-5.0) g/dL Globulin (2.2-3.9) gm/dL Albumin/Globulin Ratio (1.0-2.1) Laboratory Results - last 24 hr 06/25/16 06/25/16 06/26/16 20:45 22:09 04:25 WBC 17.3 H RBC 3.75 L Hgb 11.0 L D Hct 33.1 L MCV 88.3 MCH 29.4 MCHC 33.3 RDW 13.9 Plt Count 167 PT 30.9 H* INR 2.97 H Sodium 141 Potassium 4.3 Chloride 106 Carbon Dioxide 21 L Anion Gap 18 BUN 15 Creatinine 0.9 Est GFR ( Amer) > 60 Est GFR (Non-Af Amer) > 60 POC Glucose (mg/dL) 169 H Random Glucose 163 H Lactic Acid 3.6 H Calcium 8.3 L Total Bilirubin 0.8 AST 19 ALT 14 Alkaline Phosphatase 68 Total Protein 5.7 L Albumin 2.8 L D Globulin 2.9 Albumin/Globulin Ratio 1.0 06/26/16 06/26/16 05:37 10:45 WBC RBC Hgb Hct MCV MCH MCHC RDW Plt Count PT INR Sodium Potassium Chloride Carbon Dioxide Anion Gap BUN Creatinine Est GFR ( Amer) Est GFR (Non-Af Amer) POC Glucose (mg/dL) 188 H 187 H Random Glucose Lactic Acid Calcium Total Bilirubin AST ALT Alkaline Phosphatase Total Protein Albumin Globulin Albumin/Globulin Ratio Critical Care Progress Note - Nutrition Nutrition: Nutrition Category Date Time Status Consistent Carbohydrate [DIET] Diets 06/26/16 Breakfast Active
[2016-06-26] MEDS ORDERED: Moxifloxacin IV 400mg/250ml NS 250 ML IVPB SCH (09:00)
--- NOTE | 2016-06-26 10:26 | RAD ---
HISTORY: Sepsis Patient COMPARISON: 07/02/2012. FINDINGS: LUNGS: No active pulmonary disease. PLEURA: No significant pleural effusion identified, no pneumothorax apparent. CARDIOVASCULAR: No radiographic findings to suggest acute or significant cardiovascular disease. OSSEOUS STRUCTURES: No significant abnormalities. VISUALIZED UPPER ABDOMEN: Normal. OTHER FINDINGS: None. IMPRESSION: No active disease. No significant interval change compared to the prior examination(s).
--- NOTE | 2016-06-26 10:45 | RAD ---
HISTORY: pneumonia COMPARISON: 06/25/2016. TECHNIQUE: Chest PA and lateral FINDINGS: LUNGS: Left lower lobe infiltrate a finding not appreciated on the prior portable study, confirmed on the lateral view. PLEURA: No significant pleural effusion identified. No pneumothorax apparent. CARDIOVASCULAR: No radiographic findings to suggest acute or significant cardiovascular disease. OSSEOUS STRUCTURES: No significant abnormalities. VISUALIZED UPPER ABDOMEN: Normal. OTHER FINDINGS: None. IMPRESSION: Left lower lobe infiltrate likely acute pneumonia.
--- NOTE | 2016-06-26 10:51 | PN ---
DATE: 06/26/2016 CRITICAL CARE PROGRESS NOTE LOCATION: The patient in ICU, bed 421. TIME SPENT: 35 minutes. The patient is seen and evaluated at the bedside. Events since admission reviewed. Case was discussed in detail in a.m. rounds. Overnight, afebrile, less short of breath. Normotensive. Tolerating p.o. feeds. This morning, alert, awake, follows commands appropriately, complaining of pain, left side of the neck, left shoulder, left side of the chest, and left upper abdomen. Cough productive of blood-tinged secretions. Appetite poor. No swelling of the lower extremities. PHYSICAL EXAMINATION: VITAL SIGNS: Temperature 98.4, heart rate 103 regular, respiratory rate 24, 22 , 28, thoracoabdominal blood pressure 128/67, saturating 93-96 on 2 liters nasal cannula. INTAKE AND OUTPUT: Intake 400, output 500, negative balance 100. WEIGHT: 165 pounds. HEAD, EYES, EARS, NOSE, AND THROAT: Pupils are reactive. Conjunctivae are pink. Sclerae white. NECK: Supple. Reduced nasal congestion. Throat congested. No lymphadenopathy. CHEST: Bilateral breath sounds. Fine crepitations at the base - more on the left than the right. HEART: Rhythm regular. S1, S2 normal. ABDOMEN: Bowel sounds present, soft. Liver and spleen not palpable. Bladder not distended. EXTREMITIES: No clubbing, cyanosis, or edema. No palpable cords. SKIN: Without rash. NEUROLOGIC: Nonfocal. LABORATORY DATA: WBC 17.3, hemoglobin 11, hematocrit 33.1, platelet count 167. PT ____.9, INR 2.9. Repeat serum lactate level 3.6. SMA-7: Sodium 141, potassium 4.2, chloride 106, CO2 of 21, blood urea nitrogen 15, creatinine 0.9, glucose 188, calcium 8.3, total bilirubin 0.8. AST 19, ALT 14, alkaline phosphatase 68. Total protein 5.7, albumin 2.8. Influenza A and B negative. CURRENT MEDICATIONS: Tylenol 650 q. 6 p.r.n., albuterol inhalation with ipratropium bromide 4 times daily, albuterol inhalation 2.5 mL via nebulizer q. 4, amlodipine 10 mg daily, Pulmicort 0.5 mg twice daily, Vasotec 20 mg daily, fluticasone nasal spray 2 sprays to both nostrils once daily, Accu-Chek with regular insulin coverage, levofloxacin 750 mg IV daily, vancomycin 1 gram IV q. 12, Tamiflu 75 mg p.o. b.i.d., Januvia 50 mg p.o. daily, sodium chloride at 100 mL per hour. IMPRESSION: 1. Sepsis, bilateral lower lobe pneumonia - right more than left. 2. History of bronchial asthma. 3. History of seasonal allergies with allergic rhinitis, diabetes mellitus type 2, controlled on the current Januvia, metformin on hold. resume once the patient is able to increase food intake. Continue deep venous thrombosis prophylaxis. Hypertension remains controlled, on current Vasotec and metoprolol. We will empirically continue Tamiflu given the low sensitivity of the rapid flu screen. Cesar Zamora MD cc: [id number] TT: 06/26/2016 10:51:02 Confirmation # [id number] Dictation # [id number] jn MTDD
--- NOTE | 2016-06-26 15:02 | PQF GENQUE ---
Dr. Overton, Please specify type of pneumonia in the progress notes: if known Aspiration pneumonia Please document specific aspirate (food, liquids, etc.) Please indicate if this is postprocedural Bacterial (specify organism) Bronchopneumonia (specify organism) Interstitual pneumonia Organizing pneumonia/BOOP Pneumonia with influenza, kathy flu, or H1N1 flu RSV pneumonia Viral pneumonia Other pneumonia (specify organism or type) Unable to determine Unknown Note: Probable and suspected conditions can be coded as if they exist if still documented at the time of discharge. 2. Please specify the organism causing the pneumonia: if known after the work up is completed Note: CAP, HAP, and HCAP indicate where the pneumonia was acquired, not a specific type. This form is a permanent part of the medical record Clarification of your documentation is requested to better reflect the severity of illness and intensity of treatment of your patient. Indicators present [] Specify: [] [] Specify: [] [] Specify: [] [] Specify: [] Location in the medical record that reflects the above clinical findings: [] Treatment Provided: [] PHYSICIAN'S RESPONSE Based on your medical judgment of the clinical indicators outlined above please clarify the following: [] Practitioner response [] If unable to determine, please check the box, sign and date. Present On Admission (POA) Indicator: [] Present at the time of admission [] Not present at the time of admission [] Clinically Undetermined In responding to this query, please exercise your independent professional judgment. The fact that a question is asked does not imply that any particular answer is desired or expected. Thank you for your clarification on this documentation. If you have any questions please call. * Thank you, Daisy Evans RN BSN ext. #[phone] MTDD
--- NOTE | 2016-06-26 20:28 | CARD ---
APPROVED REPORT EKG Measurement Heart [id number] <Conclusion> Sinus tachycardia Possible Anterior infarct, age undetermined Abnormal ECG
[2016-06-27] MEDS: Insulin Regular 100 units/ml SC SCH ×5 (03:51→23:35)
[2016-06-27 05:10] LABS: HEMATOCRIT 31.4 % (34.0-47.0); MEAN CELL VOLUME 88.4 fl (81.0-99.0); MEAN CORPUSCULAR HEMOGLOBIN 29.5 pg (27.0-31.0); MEAN CORPUSCULAR HGB CONC 33.4 g/dL (33.0-37.0); WHITE BLOOD COUNT 10.9 K/uL (4.8-10.8)
[2016-06-27 05:24] LABS: BLOOD UREA NITROGEN 12 mg/dl (7-17); CALCIUM 8.9 mg/dL (8.4-10.2); CARBON DIOXIDE 23 mmol/L (22-30); CHLORIDE 110 mmol/L (98-107); GFR AFRICAN-AMERICAN > 60; GLUCOSE,RANDOM 165 mg/dL (65-105); POTASSIUM 4.3 MMOL/L (3.6-5.0); SODIUM 146 mmol/l (132-148)
--- NOTE | 2016-06-27 08:47 | CP.PCM.PN ---
Subjective - Date & Time of Evaluation Date of Evaluation: 06/27/16 Time of Evaluation: 08:47 - Subjective Subjective: pt seen and examined at bedside this morning. NAEO. Pt lying in bed comfortably , NAD. Reports not sleeping much overnight due to having to frequent to restroom for urination. Has no other complaints. Reports feeling better overall. Reports improvement in SOB and left sided chest pain, can inspire deeply now without difficulty. Denies any episodes of hemoptysis since yesterday morning. No other complaints. Denies fever/chills, headaches, changes in vision, worsening CP/SOB/ISBELL, N/V/D/C, urinary symptoms, leg pain. Objective - Vital Signs/Intake and Output Vital Signs (last 24 hours): Temp Pulse Resp BP Pulse Ox 98.2 F 86 11 L 127/63 96 06/27/16 08:00 06/27/16 08:00 06/27/16 08:00 06/27/16 08:00 06/27/16 08:00 Intake and Output: 06/27/16 06/27/16 06:59 18:59 Intake Total 320 Balance 320 - Medications Medications: Current Medications Acetaminophen (Tylenol 325mg Tab) 650 mg PO Q6 PRN PRN Reason: Fever >100.4 F Albuterol/Ipratropium (Duoneb 3 Mg/0.5 Mg (3 Ml) Ud) 3 ml INH RQID [facility] Last Admin: 06/26/16 20:30 Dose: 3 ml Amlodipine Besylate (Norvasc) 5 mg PO DAILY [facility] Budesonide (Pulmicort Respules) 0.5 mg IH RBID [facility] Last Admin: 06/26/16 20:30 Dose: 0.5 mg Dextrose (Glutose 15) 0 gm PO ONCE PRN; Protocol PRN Reason: Hypoglycemia Protocol Dextrose (Dextrose 50% Inj) 0 ml IV STAT PRN; Protocol PRN Reason: Hyglycemia Protocol Enalapril Maleate (Vasotec) 20 mg PO DAILY [facility] Last Admin: 06/26/16 08:34 Dose: 20 mg Fluticasone Propionate (Flonase) 2 spr SAE DAILY [facility] Last Admin: 06/27/16 08:44 Dose: 2 spr Glucagon (Glucagen Diagnostic Kit) 0 mg IM STAT PRN; Protocol PRN Reason: Hypoglycemia Protocol Sodium Chloride (Sodium Chloride 0.9%) 1,000 mls @ 100 mls/hr IV .Q10H [facility] Last Admin: 06/26/16 04:00 Dose: 100 mls/hr Levofloxacin/Dextrose (Levaquin 750mg) 150 mls @ 100 mls/hr IVPB DAILY [facility] Stop: 06/29/16 17:51 Last Admin: 06/26/16 08:33 Dose: 100 mls/hr Vancomycin HCl 1 gm/ Sodium (Chloride) 250 mls @ 166.667 mls/hr IVPB Q12H [facility] Last Admin: 06/26/16 17:19 Dose: 166.667 mls/hr Insulin Human Regular (Humulin R) 0 units SC ACCU-CHECK [facility] PRN Reason: Protocol Last Admin: 06/27/16 03:51 Dose: Not Given Metoprolol Tartrate (Lopressor) 50 mg PO DAILY [facility] Last Admin: 06/26/16 08:34 Dose: 50 mg Oseltamivir Phosphate (Tamiflu Cap) 75 mg PO BID [facility] Last Admin: 06/26/16 17:18 Dose: 75 mg - Labs Labs: 06/27/16 04:40 06/27/16 04:40 PT 23.8 SECONDS (9.6-11.2) H D 06/27/16 04:40 INR 2.29 (0.92-1.08) H D 06/27/16 04:40 APTT 48.3 SECONDS (23.3-32.5) H 06/25/16 15:55 - Constitutional Appears: Well, Non-toxic, No Acute Distress - Eye Exam Eye Exam: EOMI Pupil Exam: PERRL - ENT Exam ENT Exam: Mucous Membranes Moist - Neck Exam Neck Exam: Full ROM. absent: Lymphadenopathy - Respiratory Exam Respiratory Exam: Wheezes, NORMAL BREATHING PATTERN. absent: Rales, Rhonchi Additional comments: minor wheezes in left upper lung field, likely to be transmitted upper respiratory sounds. - Cardiovascular Exam Cardiovascular Exam: REGULAR RHYTHM, RRR, +S1, +S2. absent: Gallop, JVD, Rubs, Murmur - GI/Abdominal Exam GI & Abdominal Exam: Soft, Normal Bowel Sounds. absent: Distended, Firm, Guarding, Rigid, Tenderness - Extremities Exam Extremities Exam: Full ROM, Normal Inspection. absent: Calf Tenderness, Pedal Edema - Neurological Exam Neurological Exam: Alert, Awake, CN II-XII Intact, Oriented x3 - Psychiatric Exam Psychiatric exam: Normal Affect, Normal Mood - Skin Skin Exam: Dry, Intact, Normal Color, Warm Assessment and Plan - Assessment and Plan (Free Text) Assessment: 70 y/o female with a PMHx remarkable for HTN, NIDDM2, CAD (s/p CABG 6 years ago) , and Asthma admitted for Sepsis secondary to Pneumonia Plan: 1) Sepsis Secondary to Pneumonia: -admitted to ICU -Case discussed with ICU attending Dr. Zamora -Urine analysis: wnl -Urine culture: gram + cocci -blood cultures: negativ -sputum cultures: pending -Legionella: pending -Mycoplasma: pending -IV Levofloxacin 750 ml QD -IV Ciprofloxcin 200 ml Q12 -IV Vancomycin 1gm Q12 -INR: 2.97 -CBC: 17.3>11.0/33.1<167 -Lactic acid: 3.7 -CMP: WNL -CXR 06/26: left lower lobe infiltrate, likely acute pneumonia -ID on board: consult via Dr. Ramirez who agrees with current abx plan and wants to wait for culture results before giving official recommendations. -to be transferred to Med/Surg 2) Hypertension (controlled) c/w home medications 3) NIDDM2 -stopped Metormin and Glyburide -stop Januvia 50mg QD -continue with Insulin 4) Asthma: -Albuterol 2.5 inhaled Q PRN 5) DVT Prophylaxis -Warfarin 1.5 mg QD
[2016-06-27] MEDS: Budesonide 0.5 mg/2 ml Inhal Susp UD IH SCH ×2 (09:20→20:00)
[2016-06-27] MEDS: Albuterol-Ipratrop 3 mg / 0.5 (3 ml) UD INH SCH ×4 (09:20→20:00)
[2016-06-27] MEDS: Sodium Chloride 0.9% 1,000 ML IV SCH (10:01)
[2016-06-27 11:01] LABS: CHOLESTEROL 182 mg/dL (0-199)
[2016-06-27 21:31] VITALS: RESP 20
[2016-06-28] MEDS: Insulin Regular 100 units/ml SC SCH ×2 (06:38→12:16)
[2016-06-28] MEDS: Albuterol-Ipratrop 3 mg / 0.5 (3 ml) UD INH SCH ×2 (07:24→11:22)
[2016-06-28] MEDS: Budesonide 0.5 mg/2 ml Inhal Susp UD IH SCH (07:24)
[2016-06-28 08:18] VITALS: BP 131/72; TEMP 98.6
--- NOTE | 2016-06-28 09:32 | CP.PCM.PN ---
Subjective - Date & Time of Evaluation Date of Evaluation: 06/28/16 Time of Evaluation: 09:32 - Subjective Subjective: pt seen and examined at bedside. NAEO. Lying comfortably in bed, NAD. Reports feeling better today. Improvement in left-sided chest pain allowing pt to breath deeper without much difficulty. Able to sleep without SOB. OOB/ Ambulating without difficulty. Reports feeling better overall and no new complaints. Denies fever/chills, headaches, changes in vision, palpitations, N// V/D/C, urinary symptoms, numbness/tingling, leg pain. Objective - Vital Signs/Intake and Output Vital Signs (last 24 hours): Temp Pulse Resp BP Pulse Ox 98.6 F 103 H 20 131/72 92 L 06/28/16 08:17 06/28/16 08:17 06/28/16 08:17 06/28/16 08:17 06/28/16 08:17 Intake and Output: 06/28/16 06/28/16 06:59 18:59 Intake Total 450 Balance 450 - Medications Medications: Current Medications Acetaminophen (Tylenol 325mg Tab) 650 mg PO Q6 PRN PRN Reason: Fever >100.4 F Albuterol/Ipratropium (Duoneb 3 Mg/0.5 Mg (3 Ml) Ud) 3 ml INH RQID [facility] Last Admin: 06/28/16 07:24 Dose: 3 ml Amlodipine Besylate (Norvasc) 5 mg PO DAILY [facility] Last Admin: 06/28/16 08:31 Dose: 5 mg Budesonide (Pulmicort Respules) 0.5 mg IH RBID [facility] Last Admin: 06/28/16 07:24 Dose: 0.5 mg Dextrose (Glutose 15) 0 gm PO ONCE PRN; Protocol PRN Reason: Hypoglycemia Protocol Dextrose (Dextrose 50% Inj) 0 ml IV STAT PRN; Protocol PRN Reason: Hyglycemia Protocol Enalapril Maleate (Vasotec) 20 mg PO DAILY [facility] Last Admin: 06/28/16 08:32 Dose: 20 mg Fluticasone Propionate (Flonase) 2 spr SAE DAILY [facility] Last Admin: 06/28/16 08:29 Dose: 2 spr Glucagon (Glucagen Diagnostic Kit) 0 mg IM STAT PRN; Protocol PRN Reason: Hypoglycemia Protocol Levofloxacin/Dextrose (Levaquin 750mg) 150 mls @ 100 mls/hr IVPB DAILY [facility] Stop: 06/29/16 17:51 Last Admin: 06/28/16 08:30 Dose: 100 mls/hr Sodium Chloride (Sodium Chloride 0.9%) 1,000 mls @ 40 mls/hr IV .Q24H [facility] Last Admin: 06/27/16 10:01 Dose: 40 mls/hr Vancomycin HCl 1 gm/ Sodium (Chloride) 250 mls @ 166.667 mls/hr IVPB Q12@0900, 2200 [facility] Last Admin: 06/28/16 08:31 Dose: 166.667 mls/hr Insulin Human Regular (Humulin R) 0 units SC ACCU-CHECK [facility] PRN Reason: Protocol Last Admin: 06/28/16 06:38 Dose: 2 units Metoprolol Tartrate (Lopressor) 50 mg PO DAILY [facility] Last Admin: 06/28/16 08:30 Dose: 50 mg Oseltamivir Phosphate (Tamiflu Cap) 75 mg PO BID [facility] Last Admin: 06/28/16 08:31 Dose: 75 mg - Labs Labs: 06/27/16 04:40 06/27/16 04:40 PT 19.0 SECONDS (9.6-11.2) H 06/28/16 05:20 INR 1.83 (0.92-1.08) H 06/28/16 05:20 APTT 48.3 SECONDS (23.3-32.5) H 06/25/16 15:55 - Constitutional Appears: Non-toxic, No Acute Distress - Eye Exam Eye Exam: EOMI Pupil Exam: PERRL - ENT Exam ENT Exam: Mucous Membranes Moist - Neck Exam Neck Exam: absent: Lymphadenopathy - Respiratory Exam Respiratory Exam: Wheezes. absent: Accessory Muscle Use, Rales, Respiratory Distress Additional comments: wheezes still appreciated on lung exam but with improvement since yesterday. - Cardiovascular Exam Cardiovascular Exam: REGULAR RHYTHM, RRR, +S1, +S2. absent: Tachycardia, Gallop , JVD, Rubs, Murmur - GI/Abdominal Exam GI & Abdominal Exam: Soft, Normal Bowel Sounds. absent: Distended, Firm, Guarding, Rigid, Tenderness - Extremities Exam Extremities Exam: Normal Inspection. absent: Calf Tenderness, Pedal Edema - Neurological Exam Neurological Exam: Alert, Awake, Oriented x3 - Psychiatric Exam Psychiatric exam: Normal Affect, Normal Mood - Skin Skin Exam: Dry, Normal Color, Warm. absent: Cyanosis, Intact Assessment and Plan - Assessment and Plan (Free Text) Assessment: 70 y/o female with a PMHx remarkable for HTN, NIDDM2, CAD (s/p CABG 6 years ago) , and Asthma admitted for Sepsis secondary to Pneumonia Plan: 1) Sepsis Secondary to Pneumonia: Abx day #3 -Transferred to med/surg -Urine analysis: wnl -Urine culture: gram + cocci -blood cultures: negative -sputum cultures: pending -Legionella: pending -Mycoplasma: pending -IV Levofloxacin 750 ml QD -IV Ciprofloxcin 200 ml Q12 -IV Vancomycin 1gm Q12 -INR: 1.83 -CBC: 10.9>10.5/31.4<146 -Lactic acid: 3.7 -CMP: WNL -CXR 06/26: left lower lobe infiltrate, likely acute pneumonia -ID on board: consult via Dr. Ramirez who agrees with current abx plan and wants to wait for culture results before giving official recommendations. -PT/OT: recommend TCU -2 days of abx therapy remain 2) Hypertension (controlled) c/w home medications 3) NIDDM2 -stopped Metormin and Glyburide -stop Januvia 50mg QD -continue with Insulin 4) Intermittent Asthma: -Albuterol 2.5 inhaled Q PRN 5) DVT Prophylaxis -Warfarin 1.5 mg QD
[2016-06-28 10:07] VITALS: PULSE 97; O2SAT 94
--- NOTE | 2016-06-28 10:09 | PQF GENQUE ---
Dr. Overton, (1) Please clarify type of asthma: if known Childhood Cough variant Exercise induced Late onset Mild intermittent Mild persistent Moderate persistent Severe persistent With bronchitis(please clarify acuity of bronchitis) With chronic lung disease (please document specific chronic lung disease) Other (please specify) (2) OR: document: Unable to determine the Type of Asthma OR: document the Type of Asthma is Unknown (3) Please clarify acuity of asthma: during this admission Uncomplicated With exacerbation(acute) With status asthmaticus Other (please specify) Unable to determine Unknown This form is a permanent part of the medical record Clarification of your documentation is requested to better reflect the severity of illness and intensity of treatment of your patient. Indicators present [] Specify: [] [] Specify: [] [] Specify: [] [] Specify: [] Location in the medical record that reflects the above clinical findings: [] Treatment Provided: [] PHYSICIAN'S RESPONSE Based on your medical judgment of the clinical indicators outlined above please clarify the following: [] Practitioner response [] If unable to determine, please check the box, sign and date. Present On Admission (POA) Indicator: [] Present at the time of admission [] Not present at the time of admission [] Clinically Undetermined In responding to this query, please exercise your independent professional judgment. The fact that a question is asked does not imply that any particular answer is desired or expected. Thank you for your clarification on this documentation. If you have any questions please call. * Thank you, Daisy Evans RN BSN ext. #[phone] MTDD
[2016-06-28] MEDS: Sodium Chloride 0.9% 1,000 ML IV SCH (12:17)
--- NOTE | 2016-06-28 14:16 | CP.PCM.DIS ---
Provider - Provider Date of Admission: 06/25/16 16:25 Attending physician: Lisandra Overton MD Time Spent in preparation of Discharge (in minutes): 30 Diagnosis - Discharge Diagnosis (1) Sepsis due to pneumonia Status: Acute Hospital Course - Lab Results Lab Results: Micro Results 06/25/16 17:03 Urine,Random Urine Culture - Final Gram Positive Cocci Most Recent Lab Values WBC 10.9 K/uL (4.8-10.8) H 06/27/16 04:40 RBC 3.55 Mil/uL (3.80-5.20) L 06/27/16 04:40 Hgb 10.5 g/dL (12.0-16.0) L 06/27/16 04:40 Hct 31.4 % (34.0-47.0) L 06/27/16 04:40 MCV 88.4 fl (81.0-99.0) 06/27/16 04:40 MCH 29.5 pg (27.0-31.0) 06/27/16 04:40 MCHC 33.4 g/dL (33.0-37.0) 06/27/16 04:40 RDW 14.0 % (11.5-14.5) 06/27/16 04:40 Plt Count 146 K/uL (130-400) 06/27/16 04:40 MPV 9.8 fl (7.2-11.7) 06/25/16 15:55 Neut % (Auto) 89.3 % (50.0-75.0) H 06/25/16 15:55 Lymph % (Auto) 4.4 % (20.0-40.0) L 06/25/16 15:55 [place] % (Auto) 5.6 % (0.0-10.0) 06/25/16 15:55 Eos % (Auto) 0.0 % (0.0-4.0) 06/25/16 15:55 Baso % (Auto) 0.7 % (0.0-2.0) 06/25/16 15:55 Neut # 21.2 K/uL (1.8-7.0) H 06/25/16 15:55 Lymph # 1.0 K/uL (1.0-4.3) 06/25/16 15:55 [place] # 1.3 K/uL (0.0-0.8) H 06/25/16 15:55 Eos # 0.0 K/uL (0.0-0.7) 06/25/16 15:55 Baso # 0.2 K/uL (0.0-0.2) 06/25/16 15:55 Neutrophils % (Manual) 84 % (42-75) H 06/25/16 15:55 Band Neutrophils % 5 % (0-2) H 06/25/16 15:55 Lymphocytes % (Manual) 9 % (20-50) L 06/25/16 15:55 Monocytes % (Manual) 2 % (0-10) 06/25/16 15:55 Platelet Estimate Normal (NORMAL) 06/25/16 15:55 PT 19.0 SECONDS (9.6-11.2) H 06/28/16 05:20 INR 1.83 (0.92-1.08) H 06/28/16 05:20 APTT 48.3 SECONDS (23.3-32.5) H 06/25/16 15:55 pO2 35 mm/Hg (30-55) 06/25/16 16:05 VBG pH 7.42 (7.32-7.43) 06/25/16 16:05 VBG pCO2 34 mmHg (40-60) L 06/25/16 16:05 VBG HCO3 22.8 mmol/L 06/25/16 16:05 VBG Total CO2 23.1 mmol/L (22-28) 06/25/16 16:05 VBG O2 Sat (Calc) 74.4 % (40-65) H 06/25/16 16:05 VBG Base Excess -1.7 mmol/L (0.0-2.0) L 06/25/16 16:05 VBG Potassium 4.9 mmol/L (3.6-5.2) 06/25/16 16:05 Sodium 130.0 mmol/L (132-148) L 06/25/16 16:05 Chloride 98.0 mmol/L (98-107) 06/25/16 16:05 Glucose 353 mg/dL (65-105) H 06/25/16 16:05 Lactate 5.4 mmol/L (0.7-2.1) H* 06/25/16 16:05 FiO2 21.0 % 06/25/16 16:05 Crit Value Called To Ward cruz 06/25/16 16:05 Crit Value Called By Ms 06/25/16 16:05 Crit Value Read Back Y 06/25/16 16:05 Blood Gas Notified Time 1605 06/25/16 16:05 Sodium 146 mmol/l (132-148) 06/27/16 04:40 Potassium 4.3 MMOL/L (3.6-5.0) 06/27/16 04:40 Chloride 110 mmol/L (98-107) H 06/27/16 04:40 Carbon Dioxide 23 mmol/L (22-30) 06/27/16 04:40 Anion Gap 17 (10-20) 06/27/16 04:40 BUN 12 mg/dl (7-17) 06/27/16 04:40 Creatinine 0.8 mg/dL (0.7-1.2) 06/27/16 04:40 Est GFR ( Amer) > 60 06/27/16 04:40 Est GFR (Non-Af Amer) > 60 06/27/16 04:40 POC Glucose (mg/dL) 289 mg/dL (65-110) H 06/28/16 11:02 Random Glucose 165 mg/dL (65-105) H 06/27/16 04:40 Hemoglobin A1c 7.4 % (4.2-6.5) H 06/27/16 10:41 Lactic Acid 3.6 MMOL/L (0.7-2.1) H 06/25/16 20:45 Calcium 8.9 mg/dL (8.4-10.2) 06/27/16 04:40 Total Bilirubin 0.8 mg/dl (0.2-1.3) 06/26/16 04:25 AST 19 U/L (14-36) 06/26/16 04:25 ALT 14 U/L (9-52) 06/26/16 04:25 Alkaline Phosphatase 68 U/L (38-126) 06/26/16 04:25 Troponin I < 0.0120 ng/mL (0.00-0.120) 06/25/16 15:55 NT-Pro-B Natriuret Pep 1200 pg/ml (0-900) H 06/25/16 15:55 Total Protein 5.7 G/DL (6.3-8.2) L 06/26/16 04:25 Albumin 2.8 g/dL (3.5-5.0) L D 06/26/16 04:25 Globulin 2.9 gm/dL (2.2-3.9) 06/26/16 04:25 Albumin/Globulin Ratio 1.0 (1.0-2.1) 06/26/16 04:25 Triglycerides 166 mg/DL (0-149) H 06/27/16 10:41 Cholesterol 182 mg/dL (0-199) 06/27/16 10:41 LDL Cholesterol Direct 103 mg/dL (0-129) 06/27/16 10:41 HDL Cholesterol 38 MG/DL (30-70) 06/27/16 10:41 Procalcitonin 0.38 NG/ML (0.19-0.49) 06/27/16 08:18 Venous Blood Potassium 4.9 mmol/L (3.6-5.2) 06/25/16 16:05 Vancomycin Trough 14.6 ug/mL (5.0-10.0) H 06/27/16 08:18 Influenza Typ A,B (EIA) Negative for flu a/b (NEGATIVE) 06/25/16 15:55 - Hospital Course Hospital Course: The patient is a 70 y/o woman with a PMHx remarkable for HTN, NIDDM2, CAD (s/p CABG 6 years ago), and Asthma admitted for Sepsis secondary to Pneumonia. In the ED, the patient was found to have lactate of 5.4, elevated WBC of 23.7, fever of 103.4 and tachycardia. The patient was started on IV zosyn, IV cipro, and IV vancomycin. CXR found left infiltrate and EKG shows sinus tachycardia. Blood culture showed no growth, urine culture showed gram positive cocci, sputum culture showed few polymorphonuclear WBC, few gram positive cocci in chains/cluster, and few gram positive bacilli. Patient was admitted to ICU and continued with IV levaquin and IV vanc. Patient clinically improved and transferred to [facility]. The patient was seen by physical therapy and deemed to benefit with continuation of physical therapy at [facility] before discharge home. The patient has been seen, examined, and deemed medically fit with no contraindication for discharge to [facility] - Date & Time of H&P Date of H&P: 06/25/16 Time of H&P: 17:19 Discharge Exam - Head Exam Head Exam: ATRAUMATIC, NORMOCEPHALIC Discharge Plan - Follow Up Plan Condition: FAIR Disposition: REHAB FACILITY/REHAB UNIT
== END 2016-06-28 15:06 | DRG 871 ==
LOC: H.ER 14:15 → H.ERHOLD 16:25 → H.ICU/CCU 18:19 → H.MEDSURG1 06-27 19:39
PROVIDERS: ADMIT Family Medicine Geriatric Medicine; ATTEND Family Medicine Geriatric Medicine
PROC: 3E0F73Z Introduction of Anti-inflammatory into Respiratory Tract, Via Natural or Artificial Opening (ICD-10-PCS; principal; 2016-06-25)
DX: A41.9 Sepsis, unspecified organism (principal); J18.9 Pneumonia, unspecified organism; R65.21 Severe sepsis with septic shock; E87.2 Acidosis; R04.2 Hemoptysis; D68.32 Hemorrhagic disorder due to extrinsic circulating anticoagulants; J45.20 Mild intermittent asthma, uncomplicated; E11.65 Type 2 diabetes mellitus with hyperglycemia; I10 Essential (primary) hypertension; I25.10 Atherosclerotic heart disease of native coronary artery without angina pectoris; K29.70 Gastritis, unspecified, without bleeding; Z95.1 Presence of aortocoronary bypass graft; Z79.01 Long term (current) use of anticoagulants; Z86.73 Personal history of transient ischemic attack (TIA), and cerebral infarction without residual deficits; Z88.0 Allergy status to penicillin

== ENCOUNTER 2016-06-28 14:16 | Inpatient (IN) | payer OTHER ==
[2016-06-28 15:07] VITALS: BMI 29.9
[2016-06-28] MEDS ORDERED: Patient's Own Med (Vancomycin/0.9 % Sod Chloride [Vanco 1 Gram/250 Ml-0.9% Nacl] 1 GM) IV SCH ×2 (16:00→21:00)
[2016-06-28] MEDS: Insulin Regular 100 units/ml SC SCH ×2 (16:34→21:52)
[2016-06-28 17:37] VITALS: RESP 20
[2016-06-29] MEDS: Albuterol 0.083% Inhal Sol (2.5 mg/3 mL) UD IH PRN ×2 (06:01→17:41)
[2016-06-29] MEDS: Insulin Regular 100 units/ml SC SCH ×4 (08:45→21:44)
[2016-06-29 09:48] LABS: HEMATOCRIT 33.1 % (34.0-47.0); MEAN CELL VOLUME 86.9 fl (81.0-99.0); MEAN CORPUSCULAR HEMOGLOBIN 29.8 pg (27.0-31.0); MEAN CORPUSCULAR HGB CONC 34.3 g/dL (33.0-37.0); RED CELL DISTRIBUTION WIDTH 13.9 % (11.5-14.5); WHITE BLOOD COUNT 8.9 K/uL (4.8-10.8)
[2016-06-29] MEDS: levoFLOXacin 750 mg in D5W 150 ML BAG IVPB SCH (09:48)
[2016-06-29 10:07] LABS: BLOOD UREA NITROGEN 10 mg/dl (7-17); CALCIUM 9.3 mg/dL (8.4-10.2); CARBON DIOXIDE 20 mmol/L (22-30); CHLORIDE 106 mmol/L (98-107); GFR AFRICAN-AMERICAN > 60; GLUCOSE,RANDOM 330 mg/dL (65-105); POTASSIUM 3.5 MMOL/L (3.6-5.0); SODIUM 142 mmol/l (132-148)
--- NOTE | 2016-06-29 10:23 | RAD ---
HISTORY: Pneumonia in left lower lung , F/U COMPARISON: 06/26/2016 TECHNIQUE: Chest PA and lateral FINDINGS: LUNGS: The lungs are well inflated. There is scarring in the left lower lobe. PLEURA: No significant pleural effusion identified. No pneumothorax apparent. CARDIOVASCULAR: The heart is normal in size. Atherosclerotic aortic arch calcifications are present. . Status post median sternotomy. OSSEOUS STRUCTURES: No significant abnormalities. VISUALIZED UPPER ABDOMEN: Normal. OTHER FINDINGS: None. IMPRESSION: No active pulmonary disease.
--- NOTE | 2016-06-29 17:06 | CP.PCM.HP ---
History of Present Illness - History of Present Illness History of Present Illness: 70 y/o female with a PMHx remarkable for HTN, NIDDM2, CAD (s/o CABG 6 years ago) , and Asthma presents complaining of 1 months history of cough and congestion. Pt reports having a dry cough and rhinorrea for about one month, she went to [place] to visit her son two weeks ago and the symptoms seemed to resolve. Upon on her return to [place], the cough and congestion got worse. She went to see her cardiogist who prescribed her Clarithromycin 2 weeks ago for a 7 day course. 3 days ago the cough started to become productive and was associated with chest pain, fatigues, and chills. Pt has no other complaints. Denies headaches, changes in vision, N/V/D/C, urinary symptoms, numbness/tingling. ROS: 12 points reviewed and found to be negative PMD: Keshav Almanzar (last visit 3 years ago) Sole Conditioner: Arsenio PMHx: HTN, NIDDM2, CAD (s/p CABG 6 years ago), Asthma Meds: Januvia 50mg QD, Metformin 1000 BID, Glyburide 5mg QD, Metoprolol 50mg QD , Amlodipine 10mg QD, Enalapril 20mg QD, Omeprazole 20mg QD. Warfarin 3mg QD. ALL: Penicillin (rash) PsurgHx: Hysterectomy 20 years ago, Cholecystectomy 20 years ago SHx: negative for tobacco, ETOH, and illicit drug use Present on Admission - Present on Admission Any Indicators Present on Admission: No Review of Systems - Review of Systems All systems: reviewed and no additional remarkable complaints except Past Patient History - Infectious Disease Hx of Infectious Diseases: None - Tetanus Immunizations Tetanus Immunization: Unknown - Past Medical History & Family History Past Medical History?: Yes - Past Social History Smoking Status: Never Smoked Alcohol: None Drugs: Denies Home Situation {Lives}: With Family Domestic Violence: Negative - CARDIAC Hx Hypertension: Yes Other/Comment: cabg - PULMONARY Hx Asthma: Yes - ENDOCRINE/METABOLIC Hx Endocrine Disorders: Yes - HEMATOLOGICAL/ONCOLOGICAL Hx AIDS: No Hx Human Immunodeficiency Virus (HIV): No - MUSCULOSKELETAL/RHEUMATOLOGICAL Hx Falls: No - GASTROINTESTINAL Hx Gastritis: Yes - PSYCHIATRIC Hx Substance Use: No - SURGICAL HISTORY Hx Coronary Artery Bypass Graft: Yes - ANESTHESIA Hx Anesthesia: Yes Hx Anesthesia Reactions: No Hx Malignant Hyperthermia: No Meds Allergies/Adverse Reactions: Allergies Allergy/AdvReac Type Severity Reaction Status Date / Time Penicillins AdvReac Intermediate RASH Verified 06/28/16 15:04 Physical Exam - Constitutional Appears: Well, No Acute Distress - Head Exam Head Exam: ATRAUMATIC, NORMOCEPHALIC - Eye Exam Eye Exam: EOMI. absent: Conjunctival injection, Scleral icterus Pupil Exam: PERRL - ENT Exam ENT Exam: Mucous Membranes Moist - Neck Exam Neck exam: Positive for: Full Rom - Respiratory Exam Respiratory Exam: Wheezes, NORMAL BREATHING PATTERN. absent: Rales, Rhonchi, Respiratory Distress - Cardiovascular Exam Cardiovascular Exam: REGULAR RHYTHM, RRR, +S1, +S2. absent: Tachycardia, Gallop , JVD, Rubs, Systolic Murmur - GI/Abdominal Exam GI & Abdominal Exam: Normal Bowel Sounds, Soft. absent: Distended, Firm, Guarding, Hernia, Tenderness - Neurological Exam Neurological exam: Alert, CN II-XII Intact, Oriented x3 - Psychiatric Exam Psychiatric exam: Normal Affect, Normal Mood - Skin Skin Exam: Dry, Intact, Normal Color, Warm Results - Vital Signs Recent Vital Signs: Last Vital Signs Temp 97.9 F 06/29/16 16:39 Pulse 109 H 06/29/16 16:39 Resp 20 06/29/16 16:39 BP 158/78 H 06/29/16 16:39 Pulse Ox 98 06/29/16 16:39 - Labs Result Diagrams: 06/29/16 09:35 06/29/16 09:35 Labs: Laboratory Results - last 24 hr 06/28/16 06/29/16 06/29/16 21:28 06:12 09:35 WBC 8.9 RBC 3.81 Hgb 11.3 L Hct 33.1 L MCV 86.9 MCH 29.8 MCHC 34.3 RDW 13.9 Plt Count 183 PT 16.6 H INR 1.60 H Sodium 142 Potassium 3.5 L Chloride 106 Carbon Dioxide 20 L Anion Gap 20 BUN 10 Creatinine 0.8 Est GFR ( Amer) > 60 Est GFR (Non-Af Amer) > 60 POC Glucose (mg/dL) 256 H 207 H Random Glucose 330 H Calcium 9.3 Vancomycin Trough 10.3 H 06/29/16 06/29/16 11:25 16:05 WBC RBC Hgb Hct MCV MCH MCHC RDW Plt Count PT INR Sodium Potassium Chloride Carbon Dioxide Anion Gap BUN Creatinine Est GFR ( Amer) Est GFR (Non-Af Amer) POC Glucose (mg/dL) 209 H 143 H Random Glucose Calcium Vancomycin Trough Assessment & Plan - Assessment and Plan (Free Text) Assessment: 70 y/o female with a PMHx remarkable for HTN, NIDDM2, CAD (s/p CABG 6 years ago) , and Asthma admitted for Sepsis secondary to Pneumonia Plan: 1) Sepsis Secondary to Pneumonia: Abx day #4 -transferred to TCU -Urine analysis: wnl -Urine culture: gram + cocci -blood cultures: negative -sputum cultures: pending -Legionella: pending -Mycoplasma: pending -IV Levofloxacin 750 ml QD -IV Ciprofloxcin 200 ml Q12 -IV Vancomycin 1gm Q12 -INR: 1.83 -CBC: 10.9>10.5/31.4<146 -Lactic acid: 3.7 -CMP: WNL -CXR 06/26: left lower lobe infiltrate, likely acute pneumonia -ID on board: consult via Dr. Ramirez who agrees with current abx plan and wants to wait for culture results before giving official recommendations. -PT/OT: recommend TCU -1 days of abx therapy remain 2) Hypertension (controlled) c/w home medications 3) NIDDM2 -stopped Metormin and Glyburide -stop Januvia 50mg QD -continue with Insulin 4) Intermittent Asthma: -Albuterol 2.5 inhaled Q PRN 5) DVT Prophylaxis -Warfarin 1.5 mg QD
[2016-06-30] MEDS: Insulin Regular 100 units/ml SC SCH ×4 (06:55→21:18)
[2016-06-30] MEDS: levoFLOXacin 750 mg in D5W 150 ML BAG IVPB SCH (11:20)
[2016-06-30] MEDS ORDERED: Albuterol HFA 90 mcg/actuation (8 g) IH PRN (14:07)
[2016-06-30] MEDS: Albuterol 0.083% Inhal Sol (2.5 mg/3 mL) UD IH SCH (19:47)
[2016-07-01] MEDS: Albuterol 0.083% Inhal Sol (2.5 mg/3 mL) UD IH SCH ×4 (00:52→19:32)
[2016-07-01] MEDS: Insulin Regular 100 units/ml SC SCH ×4 (07:01→21:16)
[2016-07-01] MEDS ORDERED: Alum-Mag Hydrox-Simethicone Susp (30 mL) PO ONE (19:43)
[2016-07-01] MEDS: Enoxaparin 40 mg Syringe SC SCH (21:17)
[2016-07-02] MEDS: Albuterol 0.083% Inhal Sol (2.5 mg/3 mL) UD IH SCH ×4 (01:07→20:01)
[2016-07-02] MEDS: Insulin Regular 100 units/ml SC SCH ×4 (06:50→21:11)
[2016-07-02 07:46] LABS: MEAN CELL VOLUME 87.7 fl (81.0-99.0); MEAN CORPUSCULAR HEMOGLOBIN 29.9 pg (27.0-31.0); MEAN CORPUSCULAR HGB CONC 34.2 g/dL (33.0-37.0); RED CELL DISTRIBUTION WIDTH 14.2 % (11.5-14.5); WHITE BLOOD COUNT 6.6 K/uL (4.8-10.8)
[2016-07-02] MEDS: Enoxaparin 40 mg Syringe SC SCH (21:11)
[2016-07-03] MEDS: Albuterol 0.083% Inhal Sol (2.5 mg/3 mL) UD IH SCH ×5 (01:00→20:10)
[2016-07-03] MEDS: Insulin Regular 100 units/ml SC SCH ×4 (06:30→21:30)
[2016-07-03] MEDS: Enoxaparin 40 mg Syringe SC SCH (21:29)
[2016-07-04] MEDS: Albuterol 0.083% Inhal Sol (2.5 mg/3 mL) UD IH SCH ×4 (01:02→20:10)
[2016-07-04] MEDS: Insulin Regular 100 units/ml SC SCH ×4 (06:34→21:32)
--- NOTE | 2016-07-04 10:55 | CP.PCM.PN ---
Subjective - Date & Time of Evaluation Date of Evaluation: 07/04/16 Time of Evaluation: 10:55 - Subjective Subjective: pt seen and examined at bedside this morning. No acute events during TCU stay. Pt sitting up, comfortably, in pleasant mood, NAD. Reports feeling well overall , OOB/ambulating and tolerating PT well without dizziness or difficulty. Reports poor sleep due to nebulizer therapy. No new medical complaints. Denies fever/chills, headaches, changes in vision, CP/SOB/ISBELL/palpitations, N/V/D/C, urinary symptoms. Objective - Vital Signs/Intake and Output Vital Signs (last 24 hours): Temp Pulse Resp BP Pulse Ox 97 F L 87 20 124/52 L 99 07/04/16 08:15 07/04/16 08:53 07/04/16 08:15 07/04/16 08:53 07/04/16 08:15 - Medications Medications: Current Medications Albuterol (Ventolin Hfa 90 Mcg/Actuation (8 G)) 2 puff IH Q4H PRN PRN Reason: Shortness of Breath Last Admin: 06/30/16 17:30 Dose: 2 puff Albuterol Sulfate (Albuterol 0.083% Inhal Nevin (2.5 Mg/3 Ml) Ud) 2.5 mg IH Q6H [facility] Last Admin: 07/04/16 07:10 Dose: 2.5 mg Amlodipine Besylate (Norvasc) 10 mg PO DAILY [facility] Last Admin: 07/04/16 08:53 Dose: 10 mg Enalapril Maleate (Vasotec) 20 mg PO DAILY [facility] Last Admin: 07/04/16 08:53 Dose: 20 mg Enoxaparin Sodium (Lovenox) 40 mg SC HS DARSHAN PRN Reason: Protocol Last Admin: 07/03/16 21:29 Dose: 40 mg Famotidine (Pepcid) 20 mg PO DAILY [facility] Last Admin: 07/04/16 08:51 Dose: 20 mg Glyburide (Micronase) 5 mg PO BID@0800,1700 [facility] Last Admin: 07/04/16 08:51 Dose: 5 mg Insulin Human Regular (Humulin R) 0 units SC ACHS DARSH[facility] PRN Reason: Protocol Last Admin: 07/04/16 06:34 Dose: Not Given Metformin HCl (Glucophage) 1,000 mg PO BID@0800,1700 [facility] Last Admin: 07/04/16 08:51 Dose: 1,000 mg Metoprolol Tartrate (Lopressor) 50 mg PO DAILY [facility] Last Admin: 07/04/16 08:52 Dose: 50 mg Sitagliptin Phosphate (Januvia) 50 mg PO DAILY [facility] Last Admin: 07/04/16 08:53 Dose: 50 mg - Labs Labs: 07/02/16 06:50 06/29/16 09:35 PT 28.9 SECONDS (9.6-11.2) H D 07/04/16 04:45 INR 2.78 (0.92-1.08) H D 07/04/16 04:45 - Constitutional Appears: Well, Non-toxic, No Acute Distress - Eye Exam Eye Exam: EOMI Pupil Exam: PERRL - ENT Exam ENT Exam: Mucous Membranes Moist - Respiratory Exam Respiratory Exam: Wheezes, NORMAL BREATHING PATTERN. absent: Accessory Muscle Use, Rales, Rhonchi, Respiratory Distress Additional comments: scattered wheezes bilaterally - Cardiovascular Exam Cardiovascular Exam: REGULAR RHYTHM, RRR, +S1, +S2. absent: Gallop, JVD, Rubs, Murmur - GI/Abdominal Exam GI & Abdominal Exam: Soft, Normal Bowel Sounds. absent: Firm, Guarding, Rigid, Tenderness - Neurological Exam Neurological Exam: Alert, Awake, CN II-XII Intact, Normal Gait, Oriented x3 - Psychiatric Exam Psychiatric exam: Normal Affect, Normal Mood - Skin Skin Exam: Dry, Intact, Normal Color, Warm Assessment and Plan - Assessment and Plan (Free Text) Assessment: 70 y/o female with a PMHx remarkable for HTN, NIDDM2, CAD (s/p CABG 6 years ago) , and Asthma admitted for Sepsis secondary to Pneumonia Plan: 1) Sepsis Secondary to Pneumonia (resolved) -currently in TCU -IV Levofloxacin: completed -CBC: 6.6>10.6/31.0<245 -INR: 2.78 2) Hypertension (controlled) c/w home medications 3) NIDDM2 -continued Metformin, Glyburide, Januvia 4) Intermittent Asthma: -Albuterol 2.5 inhaled Q6H -Albuterol Q4 PRN 5) DVT Prophylaxis -Warfarin 5mg -Lovenox 40 SC daily -ambulation
[2016-07-04] MEDS: Enoxaparin 40 mg Syringe SC SCH (21:04)
[2016-07-05] MEDS: Albuterol 0.083% Inhal Sol (2.5 mg/3 mL) UD IH SCH ×2 (01:06→07:41)
[2016-07-05] MEDS: Insulin Regular 100 units/ml SC SCH (06:32)
[2016-07-05 07:57] VITALS: O2SAT 98
[2016-07-05 10:50] VITALS: BP 122/71; PULSE 97; TEMP 99.3
--- NOTE | 2016-07-05 13:52 | CP.PCM.DIS ---
Provider - Provider Date of Admission: 06/28/16 15:08 Attending physician: Lisandra Overton MD Time Spent in preparation of Discharge (in minutes): 35 Hospital Course - Lab Results Lab Results: Most Recent Lab Values WBC 6.6 K/uL (4.8-10.8) 07/02/16 06:50 RBC 3.54 Mil/uL (3.80-5.20) L 07/02/16 06:50 Hgb 10.6 g/dL (12.0-16.0) L 07/02/16 06:50 Hct 31.0 % (34.0-47.0) L 07/02/16 06:50 MCV 87.7 fl (81.0-99.0) 07/02/16 06:50 MCH 29.9 pg (27.0-31.0) 07/02/16 06:50 MCHC 34.2 g/dL (33.0-37.0) 07/02/16 06:50 RDW 14.2 % (11.5-14.5) 07/02/16 06:50 Plt Count 245 K/uL (130-400) 07/02/16 06:50 PT 32.4 SECONDS (9.6-11.2) H* 07/05/16 05:30 INR 3.12 (0.92-1.08) H 07/05/16 05:30 Sodium 142 mmol/l (132-148) 06/29/16 09:35 Potassium 3.5 MMOL/L (3.6-5.0) L 06/29/16 09:35 Chloride 106 mmol/L (98-107) 06/29/16 09:35 Carbon Dioxide 20 mmol/L (22-30) L 06/29/16 09:35 Anion Gap 20 (10-20) 06/29/16 09:35 BUN 10 mg/dl (7-17) 06/29/16 09:35 Creatinine 0.8 mg/dL (0.7-1.2) 06/29/16 09:35 Est GFR ( Amer) > 60 06/29/16 09:35 Est GFR (Non-Af Amer) > 60 06/29/16 09:35 POC Glucose (mg/dL) 209 mg/dL (65-110) H 07/05/16 11:29 Random Glucose 330 mg/dL (65-105) H 06/29/16 09:35 Calcium 9.3 mg/dL (8.4-10.2) 06/29/16 09:35 Vancomycin Trough 10.3 ug/mL (5.0-10.0) H 06/29/16 09:35 - Hospital Course Hospital Course: pt was originally admitted to TCU after a short stint in the ICU and med/surg for treatment for sepsis secondary to pneumonia. She was continued her antibiotics as well as treatment for asthma exacerbation. She was worked on by PT daily. She completed her abx, continued asthma therapy and was cleared by pt. After an uneventful stay in TCU she was discharged in stable condition and with directions to follow up with her PMD Dr. Arsenio Rossi in 2-3 days. Meds on Discharge: Albuterol 3ml IH Q6 PRN Ferrous Sulfate 325 PO BID Januvia 50mg Lopressor 50mg Glyburide 5mg Amlodipine 10mg Warfarin 2mg Metformin 1000mg Enalapril 20mg Omeprazole Discharge Exam - Head Exam Head Exam: ATRAUMATIC, NORMOCEPHALIC - Eye Exam Eye Exam: EOMI Pupil Exam: PERRL - ENT Exam ENT Exam: Mucous Membranes Moist - Respiratory Exam Respiratory Exam: Clear to PA & Lateral, NORMAL BREATHING PATTERN, UNREMARKABLE. absent: Rales, Rhonchi, Wheezes, Respiratory Distress - Cardiovascular Exam Cardiovascular Exam: REGULAR RHYTHM, RRR, +S1, +S2. absent: Gallop, JVD, Rubs, Systolic Murmur - GI/Abdominal Exam GI & Abdominal Exam: Normal Bowel Sounds, Unremarkable - Neurological Exam Neurological exam: Alert, CN II-XII Intact, Oriented x3 - Psychiatric Exam Psychiatric exam: Normal Affect, Normal Mood - Skin Skin Exam: Dry, Normal Color, Warm Discharge Plan - Follow Up Plan Condition: GOOD Disposition: DISCHARGED TO HOME CARE Instructions: Warfarin (By mouth), Sepsis (GEN), Community Acquired Pneumonia ( DC), Fall Prevention (DC)
== END 2016-07-05 12:30 | disposition home health service (06) | DRG 871 ==
LOC: H.TCU 15:08
PROVIDERS: ADMIT Family Medicine Geriatric Medicine; ATTEND Family Medicine Geriatric Medicine
PROC: 3E03329 Introduction of Other Anti-infective into Peripheral Vein, Percutaneous Approach (ICD-10-PCS; principal; 2016-06-28)
PROC: F07Z9FZ Gait Training/Functional Ambulation Treatment using Assistive, Adaptive, Supportive or Protective Equipment (ICD-10-PCS; 2016-06-28)
PROC: F07M6FZ Therapeutic Exercise Treatment of Musculoskeletal System - Whole Body using Assistive, Adaptive, Supportive or Protective Equipment (ICD-10-PCS; 2016-06-28)
PROC: F08Z4FZ Home Management Treatment using Assistive, Adaptive, Supportive or Protective Equipment (ICD-10-PCS; 2016-06-29)
DX: A41.9 Sepsis, unspecified organism (principal); J18.9 Pneumonia, unspecified organism; J45.20 Mild intermittent asthma, uncomplicated; I25.10 Atherosclerotic heart disease of native coronary artery without angina pectoris; Z95.1 Presence of aortocoronary bypass graft; E11.9 Type 2 diabetes mellitus without complications; I10 Essential (primary) hypertension; Z88.0 Allergy status to penicillin